=== PATIENT | male | born 1940 | race Caucasian/White ===

== ENCOUNTER 2023-04-10 08:14 | Outpatient (REF) | payer OTHER, SELFPAY ==
--- NOTE | ~2023-04-10 | XR_ITS ---
EXAMINATION: XR KNEE AP STANDING CLINICAL INFORMATION: Pain in right knee COMPARISON: None available. TECHNIQUE: AP bilateral standing view of the knees was obtained. FINDINGS: The patient is status post right total knee arthroplasty with patellar button. There is no evidence of fracture or periprosthetic lucency. There is a small marginal osteophyte along the edge of the medial tibial plateau. There is a small associated joint effusion. There is no fracture of the left knee. There is marked narrowing of the medial joint compartment and moderate narrowing of the lateral joint compartment with marginal osteophyte proliferation. XR/XR knee standing BI IMPRESSION: 1. Status post right total knee arthroplasty without evidence of hardware complication. 2. Marked osteoarthritis of the left knee.
--- NOTE | ~2023-04-10 | XR_ITS ---
EXAMINATION: XR KNEE, RIGHT CLINICAL INFORMATION: Pain in right knee COMPARISON: Same-day AP standing view of the knees TECHNIQUE: Lateral and sunrise of the right knee obtained. FINDINGS: The patient is status post right total knee arthroplasty with patellar button. There is no evidence of fracture or periprosthetic lucency. There is a small marginal osteophyte along the edge of the medial tibial plateau. There is a small associated joint effusion. There is no fracture of the left knee. There is marked narrowing of the medial joint compartment and moderate narrowing of the lateral joint compartment with marginal osteophyte proliferation. XR/XR knee RT 2V IMPRESSION: 1. Status post right total knee arthroplasty without evidence of hardware complication. 2. Marked osteoarthritis of the left knee.
== END 2023-04-10 08:15 | disposition home or self-care (01) ==
LOC: HO.HOSX 08:14
PROVIDERS: Visit Provider Physician Assistant
DX: T84.84XA Pain due to internal orthopedic prosthetic devices, implants and grafts, initial encounter (principal); Z96.651 Presence of right artificial knee joint; M25.562 Pain in left knee
CPT/HCPCS: 73560; 73565

== ENCOUNTER 2023-07-16 08:28 | Outpatient (AMB) | payer MEDICARE, SELFPAY ==
--- NOTE | 2023-07-16 08:32 | MHC.OFFVIS ---
Intake Intake Visit Reasons: RT TKA 07/2022 -book with Dr Castro Intake Note: Gregory an 82 year old male who presents today for a follow up s/p right TKA 07/2022. The patient reports mild intermittent discomfort in his right knee. He denies any fevers or chills. He does take Tylenol which gives him fairly good relief. He continues to exercise on a daily basis. Allergies aspirin Allergy (Verified 07/16/23 08:37) Hives propoxyphene [From Darvon] Allergy (Verified 07/16/23 08:37) Hives lisinopril Adverse Reaction (Verified 07/16/23 08:37) Cough Medication List - Last Reconciled 07/16/23 by Portillo Castro MD amoxicillin 2,000 mg PO clonidine 1 patch topical QWEEK losartan 50 mg PO DAILY spironolacton-hydrochlorothiaz 25-25 mg 1 tab PO DAILY tamsulosin 0.4 mg PO DAILY Physical Exam Const Other: Well-nourished well-developed very friendly male awake alert and oriented x3 in no acute distress Extrem Other: Bilateral lower extremity examination shows good capillary refill, no skin lesions noted, normal sensation light touch Right knee examination shows that the surgical incision is well healed, no erythema, no signs of infection range of motion from.... Results Reviewed Results Reviewed: X-rays of the patient's right knee taken in April show a total knee arthroplasty in good position with no signs of loosening, no acute bony abnormalities Assessment & Plan Assessment & Plan (1) Right knee pain: Code(s): M25.561 - Pain in right knee Plan: Mr. Sevilla continues to do very well after undergoing right total knee replacement surgery in July 2022. He will continue with his home exercise program. He does know to take antibiotics before any dental work. He will contact me prior to his follow-up appointment next spring should any questions or concerns arise. Feel free to call me at any time should questions regarding his orthopedic management arise. I spent 22 minutes in reviewing the patient's records and imaging studies, seeing the patient and documenting in the medical record. Coding Level of Care Code Est Pt Level 2 (17291) Diagnoses Right knee pain M25.561
== END 2023-07-16 08:55 | disposition home or self-care (01) ==
PROVIDERS: PCP Internal Medicine; Visit Provider Orthopaedic Surgery
DX: M25.561 Pain in right knee (principal)
CPT/HCPCS: 99212

== ENCOUNTER → 2023-07-16 08:28 | Outpatient (BNVA) | payer MEDICARE, SELFPAY | PROVIDERS: PCP Internal Medicine; Visit Provider Orthopaedic Surgery | DX: Z47.1 Aftercare following joint replacement surgery (principal); Z96.651 Presence of right artificial knee joint | CPT/HCPCS: 99212 ==

== ENCOUNTER 2024-01-23 07:10 | Outpatient (REF) | payer MEDICARE, SELFPAY ==
--- NOTE | ~2024-01-23 | XR_ITS ---
EXAMINATION: XR KNEE, BILATERAL CLINICAL INFORMATION: Unilateral primary osteoarthritis left knee. Pain in right knee. COMPARISON: 04/10/2023 TECHNIQUE: AP standing, lateral and sunrise views of bilateral knees. FINDINGS: Right Knee: Redemonstration of total knee arthroplasty with patellar resurfacing in anatomic position. Hardware appears intact. Moderate suprapatellar effusion. Left Knee: The bones are diffusely demineralized. Tricompartmental degenerative changes with wbmyhdgg-lg-siojjr narrowing of the medial compartment. Tricompartmental osteophytes. Moderate narrowing of the lateral joint compartment. Small suprapatellar effusion. XR/XR knee RT 3V IMPRESSION: 1. Right total knee arthroplasty in anatomic position. Hardware appears intact. 2. Moderate suprapatellar effusion. 3. Pmmiqzna-af-cjtrbp degenerative changes left knee.
--- NOTE | ~2024-01-23 | XR_ITS ---
EXAMINATION: XR KNEE, BILATERAL CLINICAL INFORMATION: Unilateral primary osteoarthritis left knee. Pain in right knee. COMPARISON: 04/10/2023 TECHNIQUE: AP standing, lateral and sunrise views of bilateral knees. FINDINGS: Right Knee: Redemonstration of total knee arthroplasty with patellar resurfacing in anatomic position. Hardware appears intact. Moderate suprapatellar effusion. Left Knee: The bones are diffusely demineralized. Tricompartmental degenerative changes with [id number] narrowing of the medial compartment. Tricompartmental osteophytes. Moderate narrowing of the lateral joint compartment. Small suprapatellar effusion. XR/XR knee LT 3V IMPRESSION: 1. Right total knee arthroplasty in anatomic position. Hardware appears intact. 2. Moderate suprapatellar effusion. 3. Fmnaajqf-ro-qawlwo degenerative changes left knee.
== END 2024-01-23 07:11 | disposition home or self-care (01) ==
LOC: HO.HOSX 07:10
PROVIDERS: Visit Provider Orthopaedic Surgery
DX: M17.12 Unilateral primary osteoarthritis, left knee (principal); M25.561 Pain in right knee; Z79.899 Other long term (current) drug therapy
CPT/HCPCS: 73562; 99212

== ENCOUNTER 2024-01-23 08:19 | Outpatient (AMB) | payer MEDICARE, SELFPAY ==
[2024-01-23 08:20] VITALS: BMI 26.6
--- NOTE | 2024-01-23 08:20 | MHC.OFFVIS ---
Intake Vital Signs 01/23/24 08:20 Height 5 ft 7 in Weight 170 lb BMI 26.6 Intake Visit Reasons: ov -RT TKA 07/2022 Intake Note: Gregory is a 83 year old male who presents for a follow up after his Right TKA in 07/2022. Patient reports mild intermittent discomfort in his right knee. Today he is most concerned with progressively worsening left knee pain. He describes his left knee pain as sharp and severe in nature, 10/10. His left knee pain has gotten worse over the last few years in spite of continued non operative treatments. He has done physical therapy exercises which aggravated his pain. He has also tried Tylenol and anti-inflammatory medicines which gave him minimal relief. He has had injections in the past. The most recent injection gave him no relief. The patient has difficulty walking even short distances because of his left knee pain. At this point is left knee pain is interfering with his activities of daily living and his ability to sleep well through the night. Allergies aspirin Allergy (Verified 01/23/24 08:30) Hives propoxyphene [From Darvon] Allergy (Verified 01/23/24 08:30) Hives lisinopril Adverse Reaction (Verified 01/23/24 08:30) Cough Medication List - Last Reconciled 01/23/24 by Portillo Castro MD amoxicillin 2,000 mg PO amoxicillin 2,000 mg (4 x 500 mg) PO ONCE clonidine 1 patch topical QWEEK losartan 50 mg PO DAILY spironolacton-hydrochlorothiaz 25-25 mg 1 tab PO DAILY tamsulosin 0.4 mg PO DAILY PFSH Surgical History (Updated 01/23/24 @ 08:31 by Hailee Cruz CMA) Hx of right knee surgery (~07/2022) Social History (Updated 01/23/24 @ 08:31 by Hailee Cruz CMA) Patient Tobacco Use Status: Never used Tobacco Current occupational status: retired Current occupation: Right hand dominate Physical Exam Vital Signs: BMI result Body Mass Index 26.6 Const Other: Well-nourished well-developed very friendly male awake alert and oriented x3 in no acute distress Extrem Other: Bilateral lower extremity examination shows good capillary refill, no skin lesions noted, normal sensation light touch Right knee examination shows that the surgical incision is well healed, no erythema, full active extension and flexion to 125 degrees, his patella tracks well Left knee examination shows a mild effusion, palpable crepitus with range of motion, pain with range of motion, range of motion from -3 degrees to 115 degrees, no instability Results Reviewed Results Reviewed: X-rays of the patient's right knee taken today show a total knee arthroplasty in good position with no signs of loosening, no acute bony abnormalities X-rays of the patient's left knee taken today show end-stage degenerative joint disease with grade 4 pngg-jr-kzau arthritis, subchondral sclerosis, osteophyte formation, no acute bony abnormalities Assessment & Plan Assessment & Plan (1) Arthritis of left knee: Code(s): M17.12 - Unilateral primary osteoarthritis, left knee (2) Right knee pain: Code(s): M25.561 - Pain in right knee Plan Mr. Sevilla continues to do very well after undergoing right total knee replacement surgery in July of 2022. He does know to take antibiotics before any dental work. The patient does have progressively worsening left knee pain due to end-stage degenerative joint disease. I had a lengthy discussion with the patient regarding the treatment options. At this point he has failed continued non operative treatments. The risks and benefits of left total knee replacement surgery were discussed at length with the patient. The patient is interested in proceeding with surgery later this year. He will contact my office to pick a surgery date. I will see him back this summer for repeat clinical examination and to further discuss his plans for left total knee replacement surgery. Feel free to call me at any time should questions regarding his orthopedic management arise. I spent 22 minutes in reviewing the patient's records and imaging studies, seeing the patient and documenting in the medical record. Orders: Orders XR knee RT 3V Today M25.561 - Pain in right knee XR knee LT 3V Today M17.12 - Unilateral primary osteoarthritis, left knee, M25.561 - Pain in right knee Coding Level of Care Code Est Pt Level 2 (20922) Diagnoses Arthritis of left knee M17.12 Right knee pain M25.561
== END 2024-01-23 09:08 | disposition home or self-care (01) ==
PROVIDERS: PCP Internal Medicine; Visit Provider Orthopaedic Surgery
DX: M17.12 Unilateral primary osteoarthritis, left knee (principal); M25.561 Pain in right knee; Z96.651 Presence of right artificial knee joint
CPT/HCPCS: 99213

== ENCOUNTER 2024-05-19 08:18 | Outpatient (AMB) | payer MEDICARE, SELFPAY ==
--- NOTE | 2024-05-19 08:22 | A.OFFVIS_ITS ---
Vital Signs 05/19/24 08:26 Height 5 ft 7 in Weight 175 lb BMI 27.4 Intake Visit Reasons: ov -RT TKA 07/2022 Intake Note: Gregory is a 83 year old male who presents for a follow up after his Right TKA in 07/2022. Patient reports mild intermittent discomfort in his right knee. Today he is most concerned with progressively worsening left knee pain. He describes his left knee pain as sharp and severe in nature, 10/10. His left knee pain has gotten worse over the last few years in spite of continued non operative treatments. He has done physical therapy exercises which aggravated his pain. He has also tried Tylenol and anti-inflammatory medicines which gave him minimal relief. He has had injections in the past. The most recent injection gave him no relief. The patient has difficulty walking even short distances because of his left knee pain. At this point is left knee pain is interfering with his activities of daily living and his ability to sleep well t hrough the night. Allergies aspirin Allergy (Verified 05/19/24 08:27) Hives propoxyphene [From Darvon] Allergy (Verified 05/19/24 08:27) Hives lisinopril Adverse Reaction (Verified 05/19/24 08:27) Cough Medication List - Last Reconciled 05/19/24 by Portillo Castro MD amoxicillin 2,000 mg PO amoxicillin 2,000 mg (4 x 500 mg) PO ONCE clonidine 1 patch topical QWEEK losartan 50 mg PO DAILY spironolacton-hydrochlorothiaz 25-25 mg 1 tab PO DAILY tamsulosin 0.4 mg PO DAILY PFSH Surgical History Hx of right knee surgery (~07/2022) Social History Patient Tobacco Use Status: Never used Tobacco Current occupational status: retired Current occupation: Right hand dominate Physical Exam Vital Signs: BMI result Body Mass Index 27.4 Const Other: Well-nourished well-developed very friendly male awake alert and oriented x3 in no acute distress Extrem Other: Bilateral lower extremity examination shows good capillary refill, no skin lesions noted, normal sensation light touch Left knee examination shows a mild effusion, palpable crepitus with range of motion, pain with range of motion, range of motion from -3 degrees to 115 degrees, no instability Results Reviewed Results Reviewed: X-rays of the patient's left knee show end-stage degenerative joint disease with grade 4 jsmd-rh-tcsr arthritis, subchondral sclerosis, osteophyte formation, no acute bony abnormalities Assessment & Plan Assessment & Plan (1) Arthritis of left knee: Code(s): M17.12 - Unilateral primary osteoarthritis, left knee Category: Medical Plan Mr. Sevilla presents with progressively worsening left knee pain due to end- stage degenerative joint disease. I had a lengthy discussion with the patient regarding the treatment options. At this point he has failed continued non operative treatments. The risks and benefits of left total knee replacement surgery were discussed at length with the patient. The patient wishes to proceed with surgery. He will be scheduled for next available date. I will see him back prior to the surgery to answer any final questions that he might have. Feel free to call me at any time should questions regarding his orthopedic management arise. I spent 22 minutes in reviewing the patient's records and imaging studies, seeing the patient and documenting in the medical record. Medications: Refilled amoxicillin Take four tabs (2,000 mg) one hour before any dental work 2,000 mg (4 x 500 mg) PO ONCE 20 tabs 3RF Coding Level of Care Code Est Pt Level 3 (44684) Diagnoses Arthritis of left knee M17.12
[2024-05-19 08:26] VITALS: BMI 27.4
== END 2024-05-19 08:52 | disposition home or self-care (01) ==
PROVIDERS: PCP Internal Medicine; Visit Provider Orthopaedic Surgery
DX: M17.12 Unilateral primary osteoarthritis, left knee (principal)
CPT/HCPCS: 99214

== ENCOUNTER → 2024-05-19 08:18 | Outpatient (BNVA) | payer MEDICARE, SELFPAY | PROVIDERS: PCP Internal Medicine; Visit Provider Orthopaedic Surgery | DX: M17.12 Unilateral primary osteoarthritis, left knee (principal) | CPT/HCPCS: 99212 ==

== ENCOUNTER → 2024-06-18 10:51 | Outpatient (BNVA) | payer MEDICARE, SELFPAY | PROVIDERS: PCP Internal Medicine | DX: Z01.818 Encounter for other preprocedural examination (principal) ==

== ENCOUNTER 2024-07-16 08:02 | Outpatient (AMB) | payer MEDICARE, SELFPAY ==
--- NOTE | 2024-07-16 08:06 | MHC.OFFVIS ---
Intake Visit Reasons: L TKA w/ 07/20/24 Intake Note: Gregory is a 83 year old male who presents for a follow up after his Right TKA in 07/2022. Patient reports mild intermittent discomfort in his right knee. Today he is most concerned with progressively worsening left knee pain. He describes his left knee pain as sharp and severe in nature, 10/10. His left knee pain has gotten worse over the last few years in spite of continued non operative treatments. He has done physical therapy exercises which aggravated his pain. He has also tried Tylenol and anti-inflammatory medicines which gave him minimal relief. He has had injections in the past. The most recent injection gave him no relief. The patient has difficulty walking even short distances because of his left knee pain. At this point is left knee pain is interfering with his activities of daily living and his ability to sleep well through the night. Allergies aspirin Allergy (Verified 07/16/24 08:11) Hives propoxyphene [From Darvon] Allergy (Verified 07/16/24 08:11) Hives lisinopril Adverse Reaction (Verified 07/16/24 08:11) Cough Medication List - Last Reconciled 07/16/24 by Portillo Castro MD amoxicillin 2,000 mg (4 x 500 mg) PO ONCE cholecalciferol (vitamin D3) 50 mcg PO DAILY clonidine 1 patch topical QWEEK ipratropium bromide 2 sprays intranasal TID losartan 50 mg PO DAILY spironolacton-hydrochlorothiaz 25-25 mg 1 tab PO DAILY tamsulosin 0.4 mg PO BEDTIME walker Folding front wheeled walker [facility] Medical History Bowel obstruction Osteoarthritis Pain in limb Pure hypercholesterolemia Hearing loss Unspecified deformity of ankle and foot, acquired Hyperpiesia Arthritis Helicobacter pylori (H. pylori) infection HTN (hypertension) Prostate nodule Actinic keratosis Pre-diabetes Surgical History H/O colonoscopy Hx of appendectomy History of esophagogastroduodenoscopy (EGD) History of total right knee replacement Hx of right knee surgery (~2000) Social History Are you a primary intensive care nurse to a significant other at home: No Do you presently have visiting nurse or other home services: No Patient Tobacco Use Status: Never used Tobacco Current occupational status: retired Current occupation: Right hand dominate Physical Exam Const Other: Well-nourished well-developed very friendly male awake alert and oriented x3 in no acute distress Extrem Other: Bilateral lower extremity examination shows good capillary refill, no skin lesions noted, normal sensation light touch Left knee examination shows a minimal effusion, palpable crepitus with range of motion, pain with range of motion, range of motion from -3 degrees to 115 degrees, no instability Results Reviewed Results Reviewed: X-rays of the patient's left knee show end-stage degenerative joint disease with grade 4 xyob-wi-dlri arthritis, subchondral sclerosis, osteophyte formation, no acute bony abnormalities Assessment & Plan Assessment & Plan (1) Arthritis of left knee: Code(s): M17.12 - Unilateral primary osteoarthritis, left knee Category: Medical Plan Mr. Sevilla presents with left knee pain due to end-stage degenerative joint disease. I had a lengthy discussion with the patient regarding the treatment options. At this point he has failed continued non operative treatments. The risks and benefits of left total knee replacement surgery were discussed at length with the patient. The patient wishes to proceed with surgery. administrative services coordinator will be consulted following his surgery for home physical therapy and nursing. The patient will follow-up as instructed. Feel free to call me at any time should questions regarding his orthopedic management arise. I spent 22 minutes in reviewing the patient's records and imaging studies, seeing the patient and documenting in the medical record. Coding Level of Care Code Est Pt Level 3 (65256) Complex EM visit Add On G2211 Diagnoses Arthritis of left knee M17.12
== END 2024-07-16 08:25 | disposition home or self-care (01) ==
PROVIDERS: PCP Internal Medicine; Visit Provider Orthopaedic Surgery
DX: M17.12 Unilateral primary osteoarthritis, left knee (principal); Z96.651 Presence of right artificial knee joint
CPT/HCPCS: 99214; G2211

== ENCOUNTER → 2024-07-16 08:02 | Outpatient (BNVA) | payer MEDICARE, SELFPAY | PROVIDERS: PCP Internal Medicine; Visit Provider Orthopaedic Surgery | DX: M17.12 Unilateral primary osteoarthritis, left knee (principal); Z96.652 Presence of left artificial knee joint; Z96.651 Presence of right artificial knee joint | CPT/HCPCS: 99212 ==

== ENCOUNTER 2024-07-20 05:50 | Day surgery (SDC) | payer MEDICARE, SELFPAY ==
[2024-07-13 12:31] VITALS: BP 145/70; PULSE 59; RESP 18; O2SAT 97; BMI 27.9
--- NOTE | 2024-07-13 12:45 | P.CONAN_ITS ---
Documented by User: Julieta Sullivan NP 07/17/24 11:57 HPI - Anesthesia Eval Consult details Narrative: 83yo M for ?Knee Replacement Total, 07/20/24 No recent illness No CP/SOB with yardwork, stationary bike HTN / CKD : clonidine patch effective, follows RTANE. Stable without tx change at 04/2024. Aware of surgery. Baseline creat 1.3. PMFSH Active Problems Active Problems: All Active Problems Arthritis of left knee (Acute) Right knee pain (Acute) Status post total right knee replacement (Acute) Past Medical History Medical History Former smoker CKD (chronic kidney disease) Bowel obstruction Osteoarthritis Pain in limb Pure hypercholesterolemia Hearing loss Unspecified deformity of ankle and foot, acquired Hyperpiesia Arthritis Helicobacter pylori (H. pylori) infection HTN (hypertension) Prostate nodule Actinic keratosis Pre-diabetes Family History Family history of problems with anesthesia: No Surgical History Surgical History H/O colonoscopy Hx of appendectomy History of esophagogastroduodenoscopy (EGD) History of total right knee replacement Hx of right knee surgery (~2000) History of Problems with Anesthesia: No Social History Social History Are you a primary health care / medical job titles to a significant other at home: No Do you presently have visiting nurse or other home services: No Patient Tobacco Use Status: Never used Tobacco Use of substances other than those prescribed or required for medical reasons: No Have you been hit, kicked, punched, or otherwise hurt by someone within the past year? If so, by whom?: No Are you DNR?: No Advance Directives: No Advance Directives Information Provided: Yes Advance Directives on File: No Recently lost weight without trying: No Eating poorly because of decreased appetite: No Nutrition Risks: No Nutritional Risk Poor oral hygiene: Yes (full upper denture and partial lower denture) Current occupational status: retired Current occupation: Right hand dominate Meds Allergies Allergy/AdvReac Type Severity Reaction Status Date / Time aspirin Allergy Severe Hives Verified 07/20/24 06:20 codeine Allergy Intermediate Hives Verified 07/20/24 06:34 propoxyphene [From Darvon] Allergy Intermediate Hives Verified 07/20/24 06:20 lisinopril AdvReac Intermediate Cough Verified 07/20/24 06:20 Home Medications ?Medication ?Instructions ?Recorded ?Confirmed ?Last Taken ?Type clonidine 0.1 mg/24 hr weekly 1 patch topical QWEEK 04/10/23 07/20/24 07/18/24 History transdermal patch losartan 50 mg tablet 50 mg PO DAILY 04/10/23 07/20/24 07/19/24 History spironolactone 25 1 tab PO DAILY 04/10/23 07/20/24 07/19/24 History mg-hydrochlorothiazide 25 mg tablet tamsulosin 0.4 mg capsule 0.4 mg PO BEDTIME 04/10/23 07/20/24 07/19/24 History cholecalciferol (vitamin D3) 25 50 mcg PO DAILY 07/10/24 07/20/24 07/19/24 History mcg (1,000 unit) tablet ipratropium bromide 21 mcg (0.03 2 spray intranasal TID 07/10/24 07/20/24 07/19/24 History %) nasal spray Exam Height,Weight and Vital Signs: Height 5 ft 7 in Weight 80.739 kg Last Vital Signs Pulse 59 07/13/24 12:31 Resp 18 07/13/24 12:31 BP 145/70 H 07/13/24 12:31 Pulse Ox 97 07/13/24 12:31 O2 Del Method Room Air 07/13/24 12:31 Pertinent Lab Results Pertinent Lab Results: CBC and BMP from outside facility WNL (in clearance note) Creat 1.3 Narrative Narrative: EKG 06/2024 SR @ 60 Short RI Artifact Airway Mallampati Class: III TM Dist: >3cm Neck ROM: Full Denture: Upper Partial: Lower Heart: RRR Lungs: CTAB Assessment and Plan Assessment Anesthesia Assessment: Anesthesia Plan Discussed and PAT Visit Final Anesthetic Review Family History of Problems with Anesthesia: No History of Problems with Anesthesia: No Documented by User: Trista Prieto MD 07/20/24 08:09 [facility] Past Medical History Medical History Former smoker CKD (chronic kidney disease) Bowel obstruction Osteoarthritis Pain in limb Pure hypercholesterolemia Hearing loss Unspecified deformity of ankle and foot, acquired Hyperpiesia Arthritis Helicobacter pylori (H. pylori) infection HTN (hypertension) Prostate nodule Actinic keratosis Pre-diabetes Surgical History Surgical History H/O colonoscopy Hx of appendectomy History of esophagogastroduodenoscopy (EGD) History of total right knee replacement Hx of right knee surgery (~2000) Social History Social History Are you a primary health care / medical job titles to a significant other at home: No Do you presently have visiting nurse or other home services: No Patient Tobacco Use Status: Never used Tobacco Use of substances other than those prescribed or required for medical reasons: No Have you been hit, kicked, punched, or otherwise hurt by someone within the past year? If so, by whom?: No Are you DNR?: No Advance Directives: No Advance Directives Information Provided: Yes Advance Directives on File: No Recently lost weight without trying: No Eating poorly because of decreased appetite: No Nutrition Risks: No Nutritional Risk Poor oral hygiene: Yes (full upper denture and partial lower denture) Current occupational status: retired Current occupation: Right hand dominate Meds Allergies Allergy/AdvReac Type Severity Reaction Status Date / Time aspirin Allergy Severe Hives Verified 07/20/24 06:20 codeine Allergy Intermediate Hives Verified 07/20/24 06:34 propoxyphene [From Darvon] Allergy Intermediate Hives Verified 07/20/24 06:20 lisinopril AdvReac Intermediate Cough Verified 07/20/24 06:20 Home Medications ?Medication ?Instructions ?Recorded ?Confirmed ?Last Taken ?Type clonidine 0.1 mg/24 hr weekly 1 patch topical QWEEK 04/10/23 07/20/24 07/18/24 History transdermal patch losartan 50 mg tablet 50 mg PO DAILY 04/10/23 07/20/24 07/19/24 History spironolactone 25 1 tab PO DAILY 04/10/23 07/20/24 07/19/24 History mg-hydrochlorothiazide 25 mg tablet tamsulosin 0.4 mg capsule 0.4 mg PO BEDTIME 04/10/23 07/20/24 07/19/24 History cholecalciferol (vitamin D3) 25 50 mcg PO DAILY 07/10/24 07/20/24 07/19/24 History mcg (1,000 unit) tablet ipratropium bromide 21 mcg (0.03 2 spray intranasal TID 07/10/24 07/20/24 07/19/24 History %) nasal spray Assessment and Plan Final Anesthetic Review NPO: Yes ASA Class: III Final Preanesthetic Review: No Changes in Pt Med Stat, Meds/Allgs Chart Reviewed, Consent Obtained/Reviewed and Anes Risks/Benef Reviewed Patient Risk: Intermediate Procedure Risk: Intermediate Anesthetic Plan Anesthetic Plan: Spinal and Regional Block Disposition: Standard PACU
[2024-07-13 15:11] LABS: MRSA Nasal PCR NEGATIVE (Negative); SA Nasal PCR NEGATIVE (Negative)
[2024-07-20] VITALS (12 sets, daily range): BP systolic 114–165; BP diastolic 52–72; PULSE 47–83; RESP 12–18; TEMP 36–36.9; O2SAT 93–99; BMI 27.8
--- NOTE | 2024-07-20 06:46 | PC.NURSE ---
Patient arrived to preop. Clonidine patch present on right shoulder. OR nurse and anesthesia team made aware.
[2024-07-20] MEDS: Lactated Ringers 1,000 ML 100 ML IVCONT ×3 (06:52→22:06)
--- NOTE | 2024-07-20 10:22 | P.BOP_ITS ---
Brief Operative Note Date of Service: 07/20/24 Pre-op diagnosis: Left knee degenerative joint disease Post-op diagnosis: same Procedure: Left total knee arthroplasty Implants: Ashish Triathlon cemented posterior stabilized total knee arthroplasty with a femoral component size 5 left, tibial component size 6, polyethylene liner size 6 with 9 mm of thickness, an asymmetric patellar component size 35 with 10 mm of thickness Surgeon: Portillo Castro MD Anesthesia: regional and spinal Was an Cap Lining Machine Operator used for this Procedure?: No Cap Lining Machine Operator: Radha Lino Estimated blood loss (mL): 200 Pathology: other (Bony fragments from the left femur, tibia and patella) Condition: stable Disposition: PACU
--- NOTE | 2024-07-20 10:23 | W.PM.OPN ---
Operative Note Operative Note Date of Service: 07/20/24 Narrative: After the patient was identified as Gregory Sevilla and his left knee was initialed by myself the patient was brought to the holding area where a left leg nerve block was performed by the anesthesiologist in routine fashion. The patient was then brought to the operating room where conscious sedation and spinal anesthesia were performed by the anesthesiologist in routine fashion. The patient was given 2 g of IV Ancef preoperatively for infection prophylaxis. The patient's left lower extremity was prepped and draped in sterile fashion. A formal time-out was completed. The patient's left knee was placed onto a small bump to produce 30? of knee flexion during exposure. A #10 scalpel blade was used to make a midline incision extending 1 handbreadth proximal and distal to the patella. A second #10 scalpel blade was used to dissect the subcutaneous tissues down to the extensor mechanism. The subcutaneous flaps were maintained as thick as possible. A medial parapatellar arthrotomy was then performed using a #10 scalpel blade. The arthrotomy was begun just medial to the patellar tendon. The arthrotomy was continued 1 cm medial to the patella and then 5 mm into the medial aspect of the quadriceps tendon. The infrapatellar fat pad was partially excised to help with exposure. The soft tissue retinaculum was raised one-half of the way around the medial aspect of the proximal tibia. The patella was everted and the knee was flexed to 90?. There was no injury to the patellar tendon or its insertion onto the tibial tubercle. A drill bit was introduced into the distal aspect of the femur with a starting point 1 cm anterior to the origin of the posterior cruciate ligament. The intramedullary alignment javier was put into place. The distal alignment guide was set for a 5 degree valgus cut. The distal cutting block was put into place and was held with 4 pins. The intramedullary alignment javier was removed. Soft tissues were retracted in the distal femoral cut was made using a sagittal saw. The distal aspect of the femur measured to be a size 5 left component. Two drill holes were placed into the distal aspect of the femur marking 3? of external rotation. The distal cutting block was impacted into place and was held with 2 pins. Soft tissues were retracted and the 4 distal femoral cuts were made using a sagittal saw. Final notching and drilling of the distal aspect of the femur were performed in routine fashion. The trial femoral component was impacted into place. The knee was taken through a full range of motion. The patella tracked well. The patella was everted and the knee was flexed to 90?. The trial component was removed and our attention was directed to the proximal tibia. The medial and lateral menisci were removed using a #10 scalpel blade. A small rim of the medial meniscus was left intact to help prevent injury to the medial collateral ligament. A drill bit was then introduced into the proximal tibia with a starting point midway from medial to lateral and one-third of the way posteriorly. The intramedullary alignment javier was put into place. The proximal tibial cutting guide was placed over the alignment javier in line with the 2nd toe. The guide was held in place using 3 pins. The intramedullary alignment javier was removed. Soft tissues were retracted and the proximal tibial cut was made using a sagittal saw. The proximal tibia measured to be a size 6 component. The tibial tray was put into place with a 9 mm liner. The femoral component was impacted into place. The knee was taken through a full range of motion. There was full flexion and full extension. There was no instability with varus or valgus stress testing with the knee in flexion or extension. The patella tracked well with no medially directed force. The rotation of the tibial tray was marked using electrocautery with the knee in extension. The patella was everted and the knee was flexed to 90?. All trial components were removed. The tibial tray was placed onto the proximal tibia in line with the electrocautery merrill. The tray was held in place using 3 pins. Final broaching of the proximal tibia was performed in routine fashion. The trial liner and trial femoral component were put into place. The knee was brought into extension and our attention was directed to the patella. The patella measured 25 mm in thickness. The patellar resection guide was set for a 10 mm resection. Soft tissues were retracted and the patella cut was made using a sagittal saw. The remaining patella measured 15 mm in thickness. The undersurface of the patella was measured to be a size 35 asymmetric component. Three drill holes were placed into the undersurface of the patella in routine fashion. The trial component was put into place. The knee was taken through a full range of motion. The patella tracked well. The patella was everted and the knee was flexed to 90?. All trial components were removed. The knee was once again brought into extension and placed onto a small bump. The knee joint was irrigated with copious amounts of normal saline solution via pulse lavage while the cement was mixed. The patella was everted and the knee was flexed to 90?. A small amount of cement was placed along the posterior aspects of the tibial and femoral components. Cement was then pressurized into the proximal tibia. The tibial component was impacted into place. Any excess cement was removed. The polyethylene liner was then impacted into place. Cement was then pressurized into the distal aspect of the femur. A small amount of cement was placed into the intramedullary canal to help reduce bleeding. The femoral component was impacted into place. Any excess cement was removed. The knee was then brought into extension. Cement was pressurized into the undersurface of the patella. The patellar component was put into place and was held with a patella clamp. Any excess cement was removed. Once the cement had hardened the patellar clamp was removed. The knee was taken through a full range of motion. There was full flexion and extension. There was no instability with varus or valgus stress testing with the knee in flexion or extension. The patella tracked well with no medially directed force. The knee joint was irrigated with copious amounts of normal saline solution via pulse lavage. Any significant bleeding vessels were coagulated. The patient's left knee was placed onto a small bump. The arthrotomy was closed with #2 Ethibond [id number] interrupted suture as well as #1 Vicryl [id number] interrupted suture. The wound was once again irrigated. The subcutaneous tissues were closed with 0 Vicryl and 2-0 Vicryl interrupted sutures. The skin was closed with skin martha. Dry sterile dressing and Contreras bandages were placed over the patient's left knee. The patient was awake and alert. The patient was transferred to the recovery room in stable condition.
--- NOTE | 2024-07-20 10:33 | PHA.MEDREC ---
Pharmacy Consult ? Medication Reconciliation Pharmacy has reviewed the medication reconciliation completed by nursing.
[2024-07-20 12:49] LABS: Estimated Glomerular Filt Rate 49
[2024-07-20] MEDS: oxyCODONE HCl Immed Release 5 MG TABLET 10 MG PO ×2 (14:17→20:17)
[2024-07-20] MEDS: Acetaminophen 325 MG TABLET 650 MG PO (14:17)
[2024-07-20] MEDS: ceFAZolin Sodium/Dextrose,Iso 2 GM/50 ML PIGGYBACK IV ×2 (15:45→23:52)
[2024-07-20] MEDS: 0.9 % Sodium Chloride Flush 3 ML SYRINGE IVFLUSH ×2 (15:49→23:53)
[2024-07-20] MEDS: HYDROmorphone HCl 0.5 MG/0.5 ML SYRINGE 0.25 MG IVPUSH (17:58)
[2024-07-20] MEDS: Enoxaparin Sodium 40 MG/0.4 ML SYRINGE SUBCUT (17:58)
[2024-07-20] MEDS: Tamsulosin HCL 0.4 MG CAPSULE PO (20:17)
[2024-07-20] MEDS: Docusate Sodium 100 MG CAPSULE PO (20:17)
[2024-07-20] MEDS: Ipratropium Bromide Nas 0.03 % 30 ML SPRAY 2 SPRAY NOSTRIL-B (20:18)
[2024-07-21] MEDS: oxyCODONE HCl Immed Release 5 MG TABLET 10 MG PO ×3 (00:21→12:18)
[2024-07-21 03:29] VITALS: BP 157/73; PULSE 88; RESP 14; TEMP 37.2; O2SAT 94
[2024-07-21 07:22] VITALS: BP 153/67; PULSE 84; RESP 18; TEMP 37.1; O2SAT 95
[2024-07-21] MEDS: Losartan Potassium 50 MG TABLET PO (07:37)
[2024-07-21] MEDS: hydroCHLOROthiazide 25 MG TABLET PO (07:37)
[2024-07-21] MEDS: Cholecalciferol (Vitamin D3) 25 MCG TABLET 50 MCG PO (07:37)
[2024-07-21] MEDS: Docusate Sodium 100 MG CAPSULE PO (07:38)
[2024-07-21] MEDS: 0.9 % Sodium Chloride Flush 3 ML SYRINGE IVFLUSH (07:39)
[2024-07-21] MEDS: ceFAZolin Sodium/Dextrose,Iso 2 GM/50 ML PIGGYBACK IV (07:39)
[2024-07-21] MEDS: Spironolactone 25 MG TABLET PO (08:09)
[2024-07-21] MEDS: Ipratropium Bromide Nas 0.03 % 30 ML SPRAY 2 SPRAY NOSTRIL-B (08:09)
[2024-07-21 08:17] LABS: MANUAL DIFF FLAG NO
[2024-07-21 08:20] LABS: Basophils Percent Auto 0.2 % (0-2); Eosinophils Percent Auto 0.1 % (0-4); Hematocrit 32.7 % (42.0-52.0); Imm Gran Abs Auto 0.07 X10*3/uL (0.00-0.03); Imm Gran Pct Auto 0.6 % (0.0-0.4); Lymphocytes Absolute Auto 0.6 X10*3/uL (1.2-4.9); Lymphocytes Percent Auto 4.7 % (20-40); Mean Corpuscular HGB Conc 33.6 g/dl (31.0-36.0); Mean Corpuscular Hemoglobin 30.7 pg (27.0-33.0); Mean Corpuscular Volume 91.3 fL (80.0-98.0); Mean Platelet Volume 10.4 fL (9.4-12.4); Monocytes Absolute Auto 1.1 X10*3/uL (0.1-1.2); Monocytes Percent Auto 9.4 % (2-11); Neutrophils Absolute Auto 10.2 x10*3/uL (2.0-8.3); Platelet Count 165 X10*3/uL (160-400); Red Blood Count 3.58 X10*6/uL (4.60-5.80); Red Cell Distribution Width 12.4 % (11.0-16.0)
[2024-07-21 08:36] LABS: Anion Gap 11 (12-20); Blood Urea Nitrogen 27 mg/dL (9-16); Calcium 9.1 mg/dL (8.4-10.2); Carbon Dioxide 26 mmol/L (22-29); Chloride 103 mmol/L (96-108); Estimated Glomerular Filt Rate 55; Glucose Fasting 136 mg/dL (60-99); Sodium 136 mmol/L (135-145)
--- NOTE | 2024-07-21 11:33 | HO.POSTANES ---
Post Anesthesia Evaluation Post Anesthesia Evaluation Date of Service: 07/21/24 Vital Signs: Vital Signs Temp Pulse Resp BP Pulse Ox O2 Del Method 07/21/24 07:22 98.8 F 84 18 153/67 H 95 Room Air 07/21/24 03:29 99 F 88 14 157/73 H 94 Room Air Anesthesia: Spinal and Nerve Block Mental Status: Awake Pain Control: Satisfactory Nausea/Vomiting: None Hydration: Adequate Anesthesia-Related Issues: No Anes. Related Issues
--- NOTE | 2024-07-21 12:05 | W.MHC.F2F ---
Service Date Service Date: 07/21/24 Encounter Date of encounter: 07/21/24 Reasons for Services Signs and symptoms assessed: Weakness, poor balance, poor gait mechanics Reason for physical therapy: home safety and mobility, therapeutic exercises, restore joint function, gait/transfer training, ADL training and energy conservation Reason for occupational therapy: home safety and mobility, therapeutic exercises, restore joint function, gait/transfer training, ADL training and energy conservation Homebound: Leaving the home is medically contraindicated at this time without the asist of a device and/or another person due th the listed conditions above and below. Reason homebound: unsteady gait / fall risk, pain with ambulation, poor balance / fall risk and unable to drive Homebound supporting statement: Pt. is considered home bound due to recent surgery. Unable to drive, poor balance, poor gait mechanics. Certification: Based on the above findings, I certify that this patient is confined to the home and needs intermittent senior care care, physical therapy and/or speech therapy, or continues to need occupational therapy. The patient is under my care, and I have initiated the establishment of the plan of care. The patient will be followed by a physician who will periodically review the plan of care. Time Spent With Patient Time: Total time managing care of this patient today ____ minutes.
--- NOTE | 2024-07-21 12:06 | P.DS_ITS ---
DS: Providers Provider Date of Service: 07/21/24 Primary care physician: Amarjit Romero MD DS: Summary Hospital Course Hospital Course: The patient underwent a successful Left total knee arthroplasty on 07/20/[address] Castro, was transferred to PACU and then to the floor to recover. During their stay, their vitals were stable, afebrile at . Labs were unremarkable, H/H 11.0/32.7. POD 1 he was started on Lovenox for DVT ppx, they also received Physical Therapy services twice a day. Physical therapy should include gait training, ROM to tolerance and quad str ength. He is WBAT. Prior to discharge, his dressing was clean dry and intact. The Aquacel dressing should remain intact and dry at all times. Any concerns with the dressi ng, please contact orthopedic office. No showering. The plan is to be discharged home with vna Time Attestation Discharge Coordination Time (in mins): 30 Quality: Safe Use of Opioids Does Pt have an Active Cancer Diagnosis on the Problem List?: No Quality: Stroke Does the patient have a stroke diagnosis?: No Physical Exam Vital Signs: Vital Signs: Last Vital Signs Temp 98.8 F 07/21/24 07:22 Pulse 84 07/21/24 07:22 Resp 18 07/21/24 07:22 BP 153/67 H 07/21/24 07:22 Pulse Ox 95 07/21/24 07:22 O2 Del Method Room Air 07/21/24 07:22 O2 Flow Rate 4 07/20/24 10:26 BMI result Body Mass Index 27.8 DS: Data Data Completed and Pending Pending studies at discharge: Pending at discharge 07/20/24 09:14 Surgical [PTH] Routine Labs on day of discharge: Laboratory Results - last 24 hr 07/20/24 07/21/24 12:14 07:37 WBC 12.0 H RBC 3.58 L Hgb 11.0 L Hct 32.7 L MCV 91.3 MCH 30.7 MCHC 33.6 RDW 12.4 Plt Count 165 MPV 10.4 Immature Gran % (Auto) 0.6 H Neut % (Auto) 85.0 H Lymph % (Auto) 4.7 L [place] % (Auto) 9.4 Eos % (Auto) 0.1 Baso % (Auto) 0.2 Lymph # (Auto) 0.6 L [place] # (Auto) 1.1 Eos # (Auto) 0.0 Baso # (Auto) 0.0 Abs Immat Gran (auto) 0.07 H Absolute Neuts (auto) 10.2 H Absolute Nucleated RBC 0.000 Nucleated RBC % (auto) 0.0 Sodium 136 Potassium 4.0 Chloride 103 Carbon Dioxide 26 Anion Gap 11 L BUN 27 H Creatinine 1.40 1.25 Estim Creat Clear Calc 42.0 47.0 Estimated GFR 49 55 Fasting Glucose 136 H Calcium 9.1 Discharge Plan Discharge Patient Disposition: Home, Self-Care Referrals: Radha Lino PA-C [Physician Rehabilitation Therapy Aide] - 08/06/24 12:30 pm Discharge Medications: New docusate sodium 100 mg Capsule 100 mg PO BID 7 Days Qty: 14 0RF acetaminophen 325 mg Tablet 650 mg PO Q6H PRN (Reason: Pain, Mild (Pain Scale 1-3), fever or headache) 30 Days Qty: 240 0RF oxycodone 5 mg Tablet 5 mg PO Q4H PRN (Reason: Pain, Moderate(Pain Scale 4-6)) 7 Days Qty: 42 0RF Rx Instructions: Partial Fill upon patient request. enoxaparin 40 mg/0.4 mL Syringe 40 mg subcut Q24H 28 Days Qty: 11.2 0RF Continued (SARY) harpreet [facility] [place] See Rx Instructions .ROUTE .MEDSUPPLY Qty: 1 0RF Rx Instructions: Folding front wheeled walker ipratropium bromide 21 mcg (0.03 %) spray,non-aerosol 2 spray intranasal TID cholecalciferol (vitamin D3) 25 mcg (1,000 unit) Tablet 50 mcg PO DAILY amoxicillin 500 mg tablet 2,000 mg PO ONCE PRN (Reason: dental work) Rx Instructions: Take four tabs (2,000 mg) one hour before any dental work spironolacton-hydrochlorothiaz 25-25 mg tablet 1 tab PO DAILY losartan 50 mg tablet 50 mg PO DAILY tamsulosin 0.4 mg capsule 0.4 mg PO BEDTIME clonidine 0.1 mg/24 hr patch weekly 1 patch topical SA Patient Comments: changed every Saturday evening Discharge Orders: Discharge Order (Routine); Ordered 07/21/24 Ordered By: Marcio Murphy Diet: Advance to usual diet Activity on Discharge: Use cane or walker Activity Restrictions/Additional Instructions: Physical Therapy for ROM 0-120, quad strength, gait training. Use walker for ambulation Limit stair climbing, No shower, No tub bath, No driving Continue anticoagulant x 6 weeks Keep Aquacel dressing clean, dry and intact. Follow up with orthopedics in 2 weeks Print Language: Burundian
--- NOTE | 2024-07-21 13:05 | MHC.CM.PN ---
IMM 07/21/24, pt has been medically cleared for DC, he will go home via family transport and have home care from [facility].
--- NOTE | 2024-07-21 13:16 | PC.NURSE ---
Pt verbalizes understanding of all DC instructions, including SQ Lovenox injection, dressing instructions, and when to follow up with Ortho. IV removed, tip intact, pt tolerated well.
== END 2024-07-21 13:11 | disposition home or self-care (01) ==
LOC: HO.SSS 05:50 → HO.S3 10:22
PROVIDERS: Physician Assistant; PCP Internal Medicine; Visit Provider Orthopaedic Surgery
PROC: (CPT 27447; principal; 2024-07-20 07:30)
DX: M17.12 Unilateral primary osteoarthritis, left knee (principal); M25.562 Pain in left knee; R26.2 Difficulty in walking, not elsewhere classified; I10 Essential (primary) hypertension; R73.03 Prediabetes; E78.00 Pure hypercholesterolemia, unspecified; L57.0 Actinic keratosis; Z79.899 Other long term (current) drug therapy; Z88.6 Allergy status to analgesic agent; Z88.8 Allergy status to other drugs, medicaments and biological substances; Z86.19 Personal history of other infectious and parasitic diseases; Z96.651 Presence of right artificial knee joint; Z87.891 Personal history of nicotine dependence
CPT/HCPCS: 27447; 36415; 80048; 82565; 85025; 86850; 86900; 86901; 87640; 87641; 88305; 88311; 97110; 97116; 97161; C1776; J0131; J0171; J0665; J0690; J1100; J1170; J1650; J2250; J2704; J3370; J7120

== ENCOUNTER → 2024-07-20 05:50 | Outpatient (BNV) | payer MEDICARE, SELFPAY | PROVIDERS: PCP Internal Medicine; Visit Provider Orthopaedic Surgery | DX: Z47.1 Aftercare following joint replacement surgery (principal); Z96.652 Presence of left artificial knee joint | CPT/HCPCS: 27447; 99024; G0180 ==

== ENCOUNTER 2024-08-06 11:13 | Outpatient (REF) | payer MEDICARE, SELFPAY ==
--- NOTE | ~2024-08-06 | XR_ITS ---
EXAMINATION: XR KNEE RIGHT 1 VIEW CLINICAL INFORMATION: Pain in unspecified knee M25.569. COMPARISON: XR Right knee 01/23/2024 TECHNIQUE: One view of the right knee. FINDINGS: Prosthetic components of bilateral total knee arthroplasty are appropriately aligned without periprosthetic fracture or abnormal lucency. No component migration on this single radiograph. Multiple surgical martha overlie the left knee. XR/XR knee RT 1V IMPRESSION: Expected postoperative findings following left total knee arthroplasty. Electronically signed by: Pacheco Deras MD 10/14/2024 11:59 AM EST [facility]
== END 2024-08-06 11:14 | disposition home or self-care (01) ==
LOC: HO.HOSX 11:13
PROVIDERS: Visit Provider Physician Assistant
DX: M25.569 Pain in unspecified knee (principal); Z96.652 Presence of left artificial knee joint; Z96.651 Presence of right artificial knee joint
CPT/HCPCS: 73560; 73562; 99212

== ENCOUNTER 2024-08-06 12:08 | Outpatient (AMB) | payer MEDICARE, SELFPAY ==
--- NOTE | 2024-08-06 12:28 | MHC.OFFVIS ---
Intake Visit Reasons: L TKA w/ 07/20/24 Intake Note: Gregory is a 83 year old male who presents today for a post op appointment s/p Left TKA 07/20/24 NE. Patient reports he is doing well, states his current pain level is 3-5 out of 10. He states no concerns today. Allergies aspirin Allergy (Severe, Verified 08/06/24 12:31) Hives codeine Allergy (Intermediate, Verified 08/06/24 12:31) Hives propoxyphene [From Darvon] Allergy (Intermediate, Verified 08/06/24 12:31) Hives lisinopril Adverse Reaction (Intermediate, Verified 08/06/24 12:31) Cough HPI HPI L TKA w/ 07/20/24: Details: 83-year-old male who presents in the office today for a 17 days status post left total knee arthroplasty which was performed on 07/20/[address] Castro. While in the office today, the patient reports he is doing well; however, he continues to have some pain. He rates his current pain at 3-5/10 on the pain scale. He denies any concerns today. FORMERLY [facility], 1928–1983 Medical History Former smoker CKD (chronic kidney disease) Bowel obstruction Osteoarthritis Pain in limb Pure hypercholesterolemia Hearing loss Unspecified deformity of ankle and foot, acquired Hyperpiesia Arthritis Helicobacter pylori (H. pylori) infection HTN (hypertension) Prostate nodule Actinic keratosis Pre-diabetes Surgical History H/O colonoscopy Hx of appendectomy History of esophagogastroduodenoscopy (EGD) History of total right knee replacement Hx of right knee surgery (~2000) Social History Are you a primary patient care secretary to a significant other at home: No Do you presently have visiting nurse or other home services: No Patient Tobacco Use Status: Former Tobacco user Current occupational status: retired Current occupation: Right hand dominate Review of Systems Const All systems reviewed & are unremarkable except as noted in HPI and below Physical Exam Const General: cooperative, healthy appearing and no acute distress Resp Effort & Inspection: normal respiratory effort and able to speak in complete sentences Cardio Rate: regular rate Peripheral pulses: Peripheral pulses 2+ throughout GI Palpation (GI): Soft to palpation Skin Lesions: no lesions Rashes: no rashes Extrem Other: Left knee: Incision site is clean, dry, and intact. [place] are intact. No surrounding erythema or drainage. No signs of infection. ROM is 20-90 degrees. NVI. Assessment & Plan Assessment & Plan (1) Status post total left knee replacement: Code(s): Z96.652 - Presence of left artificial knee joint Category: Surgical Plan Mr. Sevilla is an 83-year-old male who presents in the office today for a 17 days status post left total knee arthroplasty which was performed on 07/20/[address] Castro. While in the office today, the patient reports he is doing well; however, he continues to have some pain. He rates his current pain at 3-5/10 on the pain scale. He denies any concerns today. Yuliya were removed, and steri-strips were applied. The patient will continue with his physical therapy sessions. We discussed antibiotics for an antibiotic prophylactically for possible dental work in the future; however, the patient has a prescription at home and he will contact the office when needed refills. The patient was educated they should not have any major dental work for the first 3 months post op after the left total knee arthroplasty. Follow up will be in [address] Castro, or sooner if needed. X-rays of the left knee which were obtained while in the office today and were reviewed by me, Radha Lino PA-C, revealed intact orthopedic hardware with proper alignment of the left knee. Orders: Orders XR knee RT 1V Today M25.569 - Pain in unspecified knee Patient Instructions: Scribed by Idalia Hu medical technologist prn, for Radha Lino PA-C on 08/06/24 at 12:40 pm EST. Coding Level of Care Code Global (87977) Diagnoses Status post total left knee replacement Z96.652
== END 2024-08-06 13:01 | disposition home or self-care (01) ==
PROVIDERS: PCP Internal Medicine; Visit Provider Physician Assistant
DX: Z96.652 Presence of left artificial knee joint (principal)
CPT/HCPCS: 99024

== ENCOUNTER 2024-08-27 07:58 | Outpatient (AMB) | payer MEDICARE, SELFPAY ==
--- NOTE | 2024-08-27 07:59 | MHC.OFFVIS ---
Intake Visit Reasons: L TKA w/ 07/20/24 Intake Note: Gregory is a 83 yea old male who presents with complaints of mild intermittent discomfort in his left knee after undergoing left total knee replacement surgery on 07/20/2024. Denies any fevers or chills. He continues to go to physical therapy at [facility] in [place]. He does walk with a cane when he is out of his home. Allergies aspirin Allergy (Severe, Verified 08/27/24 08:00) Hives codeine Allergy (Intermediate, Verified 08/27/24 08:00) Hives propoxyphene [From Darvon] Allergy (Intermediate, Verified 08/27/24 08:00) Hives lisinopril Adverse Reaction (Intermediate, Verified 08/27/24 08:00) Cough Medication List - Last Reconciled 08/27/24 by Portillo Castro MD acetaminophen 650 mg (2 x 325 mg) PO Q6H PRN 30 days amoxicillin 2,000 mg PO ONCE PRN cholecalciferol (vitamin D3) 50 mcg PO DAILY clonidine 1 patch topical SA docusate sodium 100 mg PO BID 7 days enoxaparin 40 mg (0.4 mL) subcut Q24H 28 days ipratropium bromide 2 sprays intranasal TID losartan 50 mg PO DAILY oxycodone 5 mg PO Q4H PRN 7 days oxycodone 5 mg PO Q6H PRN spironolacton-hydrochlorothiaz 25-25 mg 1 tab PO DAILY tamsulosin 0.4 mg PO BEDTIME walker Folding front wheeled walker [facility] Medical History Former smoker CKD (chronic kidney disease) Bowel obstruction Osteoarthritis Pain in limb Pure hypercholesterolemia Hearing loss Unspecified deformity of ankle and foot, acquired Hyperpiesia Arthritis Helicobacter pylori (H. pylori) infection HTN (hypertension) Prostate nodule Actinic keratosis Pre-diabetes Surgical History H/O colonoscopy Hx of appendectomy History of esophagogastroduodenoscopy (EGD) History of total right knee replacement Hx of right knee surgery (~2000) Social History Are you a primary career services representative to a significant other at home: No Do you presently have visiting nurse or other home services: No Patient Tobacco Use Status: Former Tobacco user Current occupational status: retired Current occupation: Right hand dominate Physical Exam Extrem Other: Left knee examination shows that the surgical incision is well healed, no erythema, full active extension and flexion to 120 degrees, his patella tracks well Assessment & Plan Assessment & Plan (1) Left knee pain: Code(s): M25.562 - Pain in left knee Category: Medical Plan Mr. Sevilla is doing very well after undergoing left total knee replacement surgery on 07/20/2024. He will continue going to formal physical therapy for now. He will gradually transition to a home exercise program. He does know to take antibiotics before any dental work. He will contact me prior to his follow-up appointment in 2 months should any questions or concerns arise. Feel free to call me at any time should questions regarding his orthopedic management arise. Coding Level of Care Code Global (05374) Diagnoses Left knee pain M25.562
== END 2024-08-27 08:26 | disposition home or self-care (01) ==
PROVIDERS: PCP Internal Medicine; Visit Provider Orthopaedic Surgery
DX: M25.562 Pain in left knee (principal)
CPT/HCPCS: 99024

== ENCOUNTER → 2024-08-27 07:58 | Outpatient (BNVA) | payer MEDICARE, SELFPAY | PROVIDERS: PCP Internal Medicine; Visit Provider Orthopaedic Surgery | DX: M25.562 Pain in left knee (principal); Z96.652 Presence of left artificial knee joint; Z79.891 Long term (current) use of opiate analgesic | CPT/HCPCS: 99212 ==

== ENCOUNTER 2024-11-26 10:29 | Outpatient (AMB) | payer MEDICARE, SELFPAY ==
--- NOTE | 2024-11-26 10:41 | A.OFFVIS_ITS ---
Vital Signs 11/26/24 10:52 Height 5 ft 7 in Weight 177 lb BMI 27.7 Intake Visit Reasons: OV-L TKA w/DR 07/20/24 Intake Note: Gregory is an 84 year old male who presents today for follow up after undergoing a left knee arthroplasty on 07/20/24. He reports mild intermittent discomfort in his left knee. He denies any fevers or chills. He takes Tylenol as needed for his discomfort. He continues with his home exercise program. Allergies aspirin Allergy (Severe, Verified 11/26/24 10:51) Hives codeine Allergy (Intermediate, Verified 11/26/24 10:51) Hives propoxyphene [From Darvon] Allergy (Intermediate, Verified 11/26/24 10:51) Hives lisinopril Adverse Reaction (Intermediate, Verified 11/26/24 10:51) Cough Medication List - Last Reviewed 11/26/24 by LILI Rodriguez acetaminophen 650 mg (2 x 325 mg) PO Q6H PRN 30 days amoxicillin 2,000 mg PO ONCE PRN cholecalciferol (vitamin D3) 50 mcg PO DAILY clonidine 1 patch topical SA docusate sodium 100 mg PO BID 7 days enoxaparin 40 mg (0.4 mL) subcut Q24H 28 days ipratropium bromide 2 sprays intranasal TID losartan 50 mg PO DAILY spironolacton-hydrochlorothiaz 25-25 mg 1 tab PO DAILY tamsulosin 0.4 mg PO BEDTIME walker Folding front wheeled walker [facility] Medical History Former smoker CKD (chronic kidney disease) Bowel obstruction Osteoarthritis Pain in limb Pure hypercholesterolemia Hearing loss Unspecified deformity of ankle and foot, acquired Hyperpiesia Arthritis Helicobacter pylori (H. pylori) infection HTN (hypertension) Prostate nodule Actinic keratosis Pre-diabetes Surgical History H/O colonoscopy Hx of appendectomy History of esophagogastroduodenoscopy (EGD) History of total right knee replacement Hx of right knee surgery (~2000) Social History Are you a primary rn progressive care unit to a significant other at home: No Do you presently have visiting nurse or other home services: No Patient Tobacco Use Status: Former Tobacco user Current occupational status: retired Current occupation: Right hand dominate Physical Exam Vital Signs: BMI result Body Mass Index 27.7 Const Other: Well-nourished well-developed very friendly male awake alert and oriented x3 in no acute distress Extrem Other: Bilateral lower extremity examination shows good capillary refill, no skin lesions noted, normal sensation light touch Left knee examination shows that the surgical incision is well healed, no erythema, range of motion from -3 degrees to 115 degrees, no instability Results Reviewed Results Reviewed: X-rays of the patient's left knee taken today show a total knee arthroplasty in good position with no signs of loosening, no acute bony abnormalities Assessment & Plan Assessment & Plan (1) Left knee pain: Code(s): M25.562 - Pain in left knee Category: Medical Plan Mr. Sevilla continues to do very well after undergoing left total knee replacement surgery on 07/20/2024. He will continue with his home program. He does know to take antibiotics before any dental work. He will contact me prior to his annual follow-up appointment should any questions or concerns arise. Feel free to call me at any time should questions regarding his orthopedic management arise. I spent 20 minutes in reviewing the patient's records and imaging studies, seeing the patient and documenting in the medical record. Orders: Orders XR knee LT 3V Today M25.562 - Pain in left knee Coding Level of Care Code Est Pt Level 3 (71194) Complex EM visit Add On G2211 Diagnoses Left knee pain M25.562
[2024-11-26 10:52] VITALS: BMI 27.7
== END 2024-11-26 11:02 | disposition home or self-care (01) ==
PROVIDERS: PCP Internal Medicine; Visit Provider Orthopaedic Surgery
DX: M25.562 Pain in left knee (principal)
CPT/HCPCS: 99213; G2211

== ENCOUNTER → 2024-11-26 10:44 | Outpatient (BNV) | payer MEDICARE, SELFPAY | PROVIDERS: Visit Provider Radiology Diagnostic Radiology | DX: M25.562 Pain in left knee (principal); Z96.652 Presence of left artificial knee joint | CPT/HCPCS: 73562 ==

== ENCOUNTER 2024-11-26 12:19 | Outpatient (REF) | payer MEDICARE, SELFPAY ==
--- NOTE | ~2024-11-26 | XR_ITS ---
EXAMINATION: XR KNEE 3 VIEWS LEFT HISTORY: M25.562 - Pain in left knee COMPARISON: Comparison is made with the prior examination dated 08/06/2024. FINDINGS: Three views of the left knee are submitted. The patient is again noted to be status post total knee arthroplasty. The orthopedic elements are in anatomic alignment. There is no radiographic evidence of loosening. There is no fracture or dislocation. The soft tissues are unremarkable. XR/XR knee LT 3V IMPRESSION: Status post left total knee arthroplasty. Electronically signed by: Lowell Perez MD 11/26/2024 03:38 PM EST
--- OUTSIDE RECORDS SUMMARY | 2024-11-27 14:23 | XMS_ITS | Clinical Summary ---
Author Organization [facility] Address [address] [place] [address] Phone Care Team Providers Care Film Processing Shift Supervisor Name Role Phone Amarjit Romero MD Primary Care Provider [phone] Allergies Active Allergy Reactions Criticality Noted Date Comments Aspirin 10/21/2006 Lisinopril Cough 02/10/2014 Propoxyphene 04/20/2019 Darvon [Pp-cap] Hives all over body Medications Medication Sig Dispensed Refills Start Date End Date Status cholecalciferol (VITAMIN D-3) 25 mcg (1,000 unit) tablet Take 1 Tablet by mouth. 08/27/2022 Active clobetasoL (Impoyz) 0.025 % cream Apply 1 Applicator topically 2 times daily. Apply small amount to right arm or affected area 07/01/2024 Active cloNIDine (ELUDPSQQ-GQX-9) 0.1 mg/[address] ONE PATCH ONTO THE SKIN EVERY 7 DAYS 02/27/2022 Active ipratropium (ATROVENT) 21 mcg (0.03 %) nasal spray 2 Sprays by Nasal route 3 times daily. 07/02/2024 Active omega 1-hss-xfm-fish oil (Fish OiL) 1,200 (144-216) mg capsule Take 1 Cap by mouth. Active sildenafiL (VIAGRA) 100 mg tablet TAKE ONE TABLET BY MOUTH NEEDED FOR ERECTILE DYSFUNCTION 06/07/2021 Active tamsulosin (FLOMAX) 0.4 mg 24 hr capsule TAKE ONE CAPSULE BY MOUTH EVERY DAY, 30 MINUTES AFTER SAME MEAL 90 capsule 1 11/09/2024 Active spironolactone-h ydroCHLOROthiazi de (ALDACTAZIDE) 25-25 mg per tablet TAKE ONE TABLET BY MOUTH EVERY DAY 90 tablet 1 11/09/2024 Active losartan (COZAAR) 50 mg tablet TAKE ONE TABLET BY MOUTH EVERY DAY 90 tablet 1 11/09/2024 Active losartan (COZAAR) 50 mg tablet TAKE ONE TABLET BY MOUTH EVERY DAY 05/06/2024 5 Discontinued spironolactone-h ydroCHLOROthiazi de (ALDACTAZIDE) 25-25 mg per tablet TAKE ONE TABLET BY MOUTH EVERY DAY 05/06/2024 5 Discontinued tamsulosin (FLOMAX) 0.4 mg 24 hr capsule TAKE ONE CAPSULE BY MOUTH EVERY DAY 30 MINUTES AFTER THE SAME MEAL DAILY 05/06/2024 5 Discontinued Active Problems Problem Noted Date Diagnosed Date Pre-diabetes 04/29/2023 Actinic keratosis 11/23/2021 Prostate nodule 09/23/2018 Overview (09/17/2024): Follows with urology Essential hypertension 10/03/2017 Arthritis, midfoot 05/20/2017 Hyperpiesia 05/13/2015 Deformity of ankle and foot, acquired 01/29/2013 Overview (09/17/2024): Pt declined evaluation IMO update Hearing loss 11/23/2010 Overview (09/17/2024): Hearing aids, follows with ENT Pure hypercholesterolemia 10/22/2007 Osteoarthritis of ankle and foot 12/03/2006 Pain in limb 12/03/2006 Encounters Date Type Department Care Team Description 10/22/2024 9:30 AM EST Office Visit Adult Medicine [address] [phone] Amarjit Romero MD Prostate cancer screening (Primary Dx); Prostate nodule; Pure hypercholesterolemia; Essential hypertension; Hyperglycemia; AMD (age related macular degeneration) 08/31/2024 Telephone Adult Medicine [address] [phone] Amarjit Romero MD MANAGEMENT INFORMATION SYSTEMS DIRECTOR Feedback (Insurance referral to Dr. Portillo Castro ([facility] from Last 3 Months Immunizations Name Administration Dates Next Due Pfizer SARS-CoV-2 COVID-19, mRNA, LNP-S, preservative free 01/03/2021,12/11/2020 Surgical History Surgery Date Site/Laterality Comments APPENDECTOMY 1948 PROCEDURE: HISTORICAL APPENDECTOMY COLONOSCOPY 09/11/13 PROCEDURE: HISTORICAL COLONOSCOPY; COMMENT: normal; would not repeat OTHER SURGICAL HISTORY 1965 PROCEDURE: MA RDCTJ VOLVULUS INTUSSUSCEPTION INT HRNA LAPT; COMMENT: from appendix surgery Medical History Medical History Date Comments Lipoma of other specified sites DX:Lipoma of other specified sites; COMMENT: angiolipoma, s/p surgery 2005, By Jatin Damon shoulder Esophageal reflux DX:Esophageal reflux; COMMENT: s/P EGD, H pylori (-), 05/09 Osteoarthrosis, unspecified whether generalized or localized, lower leg DX:Osteoarthrosis, unspecified whether generalized or localized, lower leg; COMMENT: s/p orthroscopic surgery, Dr. Jesus Historical Medical DX 10/22/2007 DX:Foot de formities Hearing loss 11/23/2010 DX:Hearing loss Unspecified deformity of ank le and foot, acquired 01/29/2013 DX:Unspecified deformity of ankle and foot, acquired Hyperpiesia 05/13/2015 DX:Hyperpiesia Essential hypertension 10/03/2017 DX:Essent ial hypertension Prostate nodule 09/23/2018 DX:Prostate nodu le; COMMENT: Follows with urology Actinic keratosis, hx of DX:Acti bonifacio keratosis, hx of Family History Medical History Relation Name Comments Other: ?thyroid ca/throat ca Brother Other: bronchitis Father ETOH, toba co Stroke Maternal Grandmother bleedin g stroke age 70 Dementia Mother lives at age 94 , 2011 Stroke Paternal Grandmother age 80 Lung cancer Sister smoker Relation Name Status Comments Brother Father Maternal Grandmother Mother Paternal Grandmother Sister Social History Tobacco Use Types Packs/Day Years Used Date Smoking Tobacco: Former Cigarettes 1.5 35.1 1 11/12/1953 - 11/04/1989 Smokeless Tobacco: Never Tobacco Cessation:Counseling Given: Not Answered Alcohol Use Standard Drinks/Week Comments Yes 0 (1 standard drink = 0.6 oz pur e alcohol) Housing Instability Answer Date Recorde d Are you worried that in the next 2 months you may not have stable housing? No 10/21/2024 Food Access & Nutrition Answer Date Rec orded Do you have access to a vari ety of food including fruits and vegetables? Yes 10/21/2024 Access to Healthcare Answer Date Record ed Within the last 3 months, ho w many times did you visit the emergency department for your medical care? 0 10/21/2024 Health Literacy Answer Date Recorded How often do you need to hav e someone help you when you read instructions, pamphlets, or other written material from your doctor or pharmacy? Never 10/21/2024 Caregiver: How often do you need to have someone help you when you read instructions, pamphlets, or other written material from your doctor or pharmacy? Not on file 10/21/2024 Financial Risk Answer Date Recorded How hard is it for you to pa y for the very basics like food, housing, medical care, and air conditioning / heating? Not very hard 10/21/2024 Transportation Answer Date Recorded Has the lack of transportati on kept you from meetings, work, or from getting things needed for daily living? No Has the lack of transportati on kept you from medical appointments or from getting medications? No 10/21/2024 Social Isolation Answer Date Recorded How often do you feel lonely or isolated from th ose around you? Never 10/21/2024 Food Risk Answer Date Recorded Within the past 12 months we worried whether our food would run out before we got money to buy more. Never true 10/21/2024 Within the past 12 months th e food we bought just didn't last and we didn't have money to get more. Never true 10/21/2024 Dependent Care Answer Date Recorded Do you need help finding or paying for care for your loved ones. For example, child advocate or elderly care for an older adult? No 10/21/2024 Education Answer Date Recorded Do you think completing more education or training, like finishing a GED, going to college, or learning a trade, would be helpful for you? No 10/21/2024 Employment and Income Answer Date Recor ded During the last four weeks, have you been actively looking for work? No 10/21/2024 Living Situation Answer Date Recorded What is your living situation? 1 12/22/2023 Sex and Gender Information Value Date Recorded Sex Assigned at Not on file Gender Identity Not on file Sexual Orientation Not on file Job Start Date Occupation Industry Not on file Not on file Not on file Obstetrics History Last Filed Vital Signs Vital Sign Reading Time Taken Comments Blood Pressure 138/68 10/22/2024 10:20 AM EST Pulse 66 10/22/2024 10:20 AM EST Temperature 36.1 ??C (96.9 ??F) 10/22/2024 10:[address] Respiratory Rate 14 10/22/2024 10:20 AM EST Oxygen Saturation - - Inhaled Oxygen Concentration - - Weight 83.9 kg (185 lb) 10/22/2024 10:20 AM EST Height 170.2 cm (5' 7 ) 10/22/2024 10:20 AM EST Body Mass Index 28.98 10/22/2024 10:20 AM EST Plan of Treatment Health Maintenance Due Date Last Done Comments Medicare Annual Wellness Visit 10/11/2022 COVID-19 Vaccine ( season) 2024 09/05/2023, 03/13/2022, 08/02/2021, Additional history exists Hypertension/CHF/CAD Annual BMP Blood Test 06/29/2025 06/29/2024, 06/29/2024, 03/31/2024 Depression Screening 10/21/2025 10/21/2024 Social Influencers of Health Screening 10/21/2025 10/21/2024 Falls Risk Assessment 10/22/2025 10/22/2024 Cholesterol Screening (Lipid Panel) 05/29/2026 05/29/2021 DTaP,Tdap,and Td Vaccines (3 - Td or Tdap) 09/05/2033 09/05/2023, 10/21/2006 Hepatitis A Vaccines Aged Out 03/26/2018 No long er eligible based on patient's age to complete this topic Pneumococcal Vaccine: 65+ Years Completed 01/21/2020, 12/11/2016, 10/22/2007 Zoster Vaccines Completed 01/21/2020, 11/04, 02/12/2013 RSV Immunization Patients 60+ Years Old Completed 08/07/2023 Influenza Vaccine Completed 08/14/2024, , 08/09/2022, Additional history exists HIB Vaccines Aged Out No longer eligi ble based on patient's age to complete this topic HPV Vaccines Aged Out No longer eligi ble based on patient's age to complete this topic Hepatitis B Vaccines Aged Out No long er eligible based on patient's age to complete this topic IPV Vaccines Aged Out No longer eligi ble based on patient's age to complete this topic MMR Vaccines Aged Out No longer eligi ble based on patient's age to complete this topic Meningococcal ACWY Vaccine Aged Out N o longer eligible based on patient's age to complete this topic RSV Immunization Patients Under 20 months Aged Out No longer eligible based on patient's age to complete this topic Varicella Vaccines Aged Out No longer eligible based on patient's age to complete this topic Procedures Procedure Name Priority Date/Time Associated Diagnosis Comments ANNUAL BMP BLOOD TEST Routine 06/29/2024 LIPID PANEL Routine 05/29/2021 from Last 3 Months or Most Recently Relevant to Health Maintenance Results * Annual BMP Blood Test (06/29/2024) Pathologist [facility] Annual BMP Blood Test abstracted Historical Provider MD LUIS FERNANDO CALDERON E * (ABNORMAL) Lipid panel (05/29/2021) Pathologist [facility] [place] LDL/HDL Ratio 4 0 - 4 Triglycerides 142 0 - 150 mg/dL Cholesterol 196 0 - 200 mg/dL HDL 55 40 mg/dL LDL Cholesterol 113(A) 0 - 100 mg/dL Blood Venous blood specimen / Unknown Historical Provider LAB BLOOD ORDERAB LES from Last 3 Months or Most Recently Relevant to Health Maintenance Advance Directives Documents on File Type Date Recorded Patient Wound Care Coordinator Expl anation Health Care Decision (hx) 07/19/2022 JESSICA PEREZ DIRECTIVE Care Teams Film Processing Shift Supervisor Relationship Specialty Start Date End Date Amarjit Romero MD [address] [place] [address] PCP - General 09/11/06
--- OUTSIDE RECORDS SUMMARY | 2024-11-27 14:23 | XMS_ITS | Clinical Summary ---
Author Organization [facility] Address [address] [place] [address] Care Team Providers Care Tv Technician Name Role Phone Amarjit Romero MD Primary Care Provider [phone] Allergies Active Allergy Reactions Criticality Noted Date Comments Aspirin 10/21/2006 Lisinopril 02/10/2014 Other reaction(s): Cough Propoxyphene 04/20/2019 Hives all over body Medications Medication Sig Dispensed Refills Start Date End Date Status amLODIPine (NORVASC) tablet 5 mg 0 10/19/2019 Active ciclopirox (PENLAC) 8 % solution 2 drops to each toenail once daily 0 03/12/2018 Active hydroCHLOROthiazid e (HYDRODIURIL) tablet 25 mg TAKE 1 TABLET BY MOUTH EVERY DAY 0 11/09/2019 Active predniSONE (DELTASONE) tablet 20 mg 0 12/04/2019 Active sildenafil (VIAGRA) 100 MG tablet TAKE ONE TABLET BY MOUTH NEEDED FOR ERECTILE DYSFUNCTION 0 11/05/2019 Active losartan (COZAAR) 100 MG tablet TAKE 1 TABLET BY MOUTH DAILY FOR 180 DAYS 0 11/28/2020 Active spironolactone-hyd rochlorothiazide (ALDACTAZIDE) 25-25 MG per tablet 0 01/20/2021 Active [place]-3 Fatty Acids (Fish Oil) 1200 MG CAPS Take 1 capsule by mouth. 0 Active NIFEdipine ER (ADALAT CC) 60 MG 24 hr tablet TAKE ONE TABLET BY MOUTH EVERY DAY 0 12/27/2021 Active cloNIDine (CATAPRES-TTS) 0.1 MG/24HR PTWK PLACE ONE PATCH ONTO THE SKIN EVERY 7 DAYS 0 05/16/2022 Active oxyCODONE (ROXICODONE) 5 MG immediate release tablet Take 1-2 tabs every 4 hours as needed for pain 50 tablet 0 07/24/2022 Active Acetaminophen Extra Strength 500 MG tablet Take 1,000 mg by mouth 3 (three) times a day. 0 07/17/2022 Active Senna Plus 8.6-50 MG Take 2 tablets by mouth every evening. 0 07/17/2022 Active Jantoven 1 MG tablet TAKE 5 PILLS (5MG) BY MOUTH DAILY AT DINNER UNLESS OTHERWISE INSTRUCTED BY DR RAM'S OFFICE 0 07/17/2022 Active amoxicillin (AMOXIL) 500 MG tablet Take 4 tabs 1 hour prior to dental appointment 20 tablet 3 07/31/2022 Active tamsulosin (FLOMAX) 0.4 MG CAPS Take 1 capsule (0.4 mg total) by mouth every night at bedtime. 30 capsule 0 08/14/2022 Active tamsulosin (FLOMAX) 0.4 MG CAPS Take 1 capsule (0.4 mg total) by mouth daily. 30 capsule 5 09/11/2022 Active Active Problems Problem Noted Date Diagnosed Date Prostate nodule 09/23/2018 Overview: Overview: Follows with urology History of Helicobacter pylori infection 017 Overview: Overview: Per pt, had EGD 3 med treatment by GI at [facility] over 20 years agon Arthritis, midfoot 05/20/2017 Essential hypertension 05/13/2015 Deformity of ankle and foot, acquired 01/29/2013 Overview: Overview: Pt declined evaluation IMO update Hearing loss 11/23/2010 Overview: Overview: Hearing aids, follows with ENT Pure hypercholesterolemia 10/22/2007 Osteoarthritis of ankle and foot 12/03/2006 Pain in limb 12/03/2006 Family History Medical History Relation Name Comments Arthritis Brother Arthritis Sister Cancer Sister Relation Name Status Comments Brother Sister Social History Tobacco Use Types Packs/Day Years Used Date Smoking Tobacco: Former Cigarettes Q uit: 11/16/1989 Smokeless Tobacco: Never Alcohol Use Standard Drinks/Week Comments No 0 (1 standard drink = 0.6 oz pur e alcohol) Sex and Gender Information Value Date Recorded Sex Assigned at Not on file Gender Identity Not on file Sexual Orientation Not on file Job Start Date Occupation Industry Not on file Not on file Not on file Last Filed Vital Signs Vital Sign Reading Time Taken Comments Blood Pressure - - Pulse - - Temperature - - Respiratory Rate - - Oxygen Saturation - - Inhaled Oxygen Concentration - - Weight 76.2 kg (168 lb) 06/12/2022 2:26 PM EDT Height 170.2 cm (5' 7 ) 06/12/2022 2:26 PM EDT Body Mass Index 26.31 06/12/2022 2:26 PM EDT Plan of Treatment Health Maintenance Due Date Last Done Comments Depression Screening 1954 Preventative Health Evaluation 1960 DTap / Tdap / Td (1 - Tdap) 10/22/2006 10/21/2006 Fall Risk Assessment 2007 RSV Adult > 60+ Yrs or (1 - 1-dose 75+ series) 2017 COVID-19 Vaccine ( season) 2024 01/03/2021, 12/11/2020 Influenza Vaccine (#1) 2024 8, 08/25/2017, 07/22/2016, Additional history exists Pneumococcal Vaccine Completed 01/21/2020, 12/11/2016, 10/22/2007 Shingrix-Zoster Vaccine Completed 01/21/2020, 11/20 Hepatitis B Vaccines Aged Out No long er eligible based on patient's age to complete this topic RSV Ped < 20 months Aged Out No longe r eligible based on patient's age to complete this topic Care Teams Tv Technician Relationship Specialty Start Date End Date Amarjit Romero MD PCP - General Internal Medicine 12/15/19
--- OUTSIDE RECORDS SUMMARY | 2024-11-27 14:23 | XMS_ITS | Patient Health Record ---
Author Organization [facility] Address [address] [facility] [place] [address] Care Team Providers Care Jig Bore Operator Name Role Phone Heather HERNANDEZ, Amarjit Mcneill Primary Care Provider Unav ailable Black, Anne Unavailable [phone] Allergies Allergen (clinical drug ingredient) Drug/Non Drug Allergy documented on EMR Reaction Allergy Type Onset Date Status aspirin Aspirin hives Drug Allergy Active Codeine Phosphate hives Drug Allergy Active Darvon Unknown Drug Allergy Active lisinopril Lisinopril cough Drug Allergy Activ e Results Component Value Reference Range Notes X ray : Foot, left 3V Reviewed date:01/06/2024 11:04:04 AM Interpretation:See Examination above Performing Lab: Notes/Report: See Examination above X ray : Foot, right 3V Reviewed date:01/06/2024 11:03:52 AM Interpretation:See Examination above Performing Lab: Notes/Report: See Examination above Reason For Referral Diagnosis 1 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) Diagnosis 2 Midfoot collapse of right lower extremity (M21.6X1) Diagnosis 3 Other hammer toe(s) (acquired), left foot (M20.42) Diagnosis 4 Other hammer toe(s) (acquired), right foot (M20.41) Diagnosis 5 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) Diagnosis 6 Osteoarthritis of ri ght ankle and foot (M19.071) Diagnosis 7 Tinea unguium (B35.1 ) Diagnosis 8 Pain in right toe(s) (M79.674) Diagnosis 9 Pain in left toe(s) (M79.675) Referring Provider First Name Amarjit bolden Referring Provider Last Name Romero Referred [facility] Referred Provider Anne Garcia Referred Address [address],[place],[address] Referred Provider Specialty Podiatry Referral Priority Routine Medications Medication SIG (Take, Route, Frequency, Duration) Notes Start Date End Date Status Fish Oil 1200 MG 1 capsule Orally Onc e a day for 30 day(s) Active Losartan Potassium 50 MG 1 tablet Orally Once a day for 30 day(s) Active cloNIDine HCl 0.1 MG 1 tablet Orally Onc e a day for 30 day(s) Active One-A-Day Mens Not-T aking Ciclopirox 8 % 1 application Externally Once a day for 30 days 09/23/2023 Active Orthopedic Extra Depth Shoes With Custom Heat Molded Multidensity Innersoles 1 Pair shoes with 3 Pair custom heat molded innersoles Wear Daily for 365 days 05/18/2024 Active Spironolactone-HCTZ 25-25 MG 1 tablet Orally Once a day for 30 day(s) Active Social History Tobacco Use: Social History Observation Description Date Details (start date - stop date) Former Smoker NA - NA Tobacco Use/Smoking Question Answer Notes Are you a: former smoker Additional Findings: Tobacco Non-User Ex-cigaret te smoker Alcohol Screen Question Answer Notes Did you have a drink contain ing alcohol in the past year? Yes How often did you have a dri nk containing alcohol in the past year? Monthly or less (1 point) Points 1 Interpretation Negative Tobacco use other than smoking: Question Answer Notes Are you an other tobacco user? No Problems Problem Type SNOMED Code ICD Code Onset Dates Problem Status W/U Status Risk Notes Problem Acquired hammer toe of right foot (2655877060749087 ) Other hammer toe(s) (acquired), right foot (M20.41) Active confirmed Response to treatment, Improvemen t Problem Acquired hammer toe of left foot (4602621745562116 ) Other hammer toe(s) (acquired), left foot (M20.42) Active confirmed Response to treatment, Improvemen t Problem [id number] Midfoot collapse of right lower extremity (M21.6X1) Active confirmed Problem Localized, primary osteoarthritis of the ankle and/or foot () Osteoarthritis of right ankle and foot (M19.071) Active confirmed Problem 096855131 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) Active confirmed Problem Localized, primary osteoarthritis of the ankle and/or foot () 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 Problem PlantarFlexion of metatarsal of left foot (M21.6X2) Active confirmed Problem Localized, primary osteoarthritis of the ankle and/or foot () Arthritis of joint of lesser toe, right (M19.071) Active confirmed Vital Signs Blood pressure diastolic 79 mm Hg 08/31/2024 Height 5 ft 7 in in 08/31/2024 Blood pressure systolic 143 mm Hg 08/31/2024 Weight 174 lbs 08/31/2024 BMI 27.25 kg/m2 08/31/2024 Procedures Procedure Date Ordered Date Performed Result Body Sit e 45085-VLZHTNI NAIL, 6 OR MORE 01/06/2024 N/A 22112-[id number] NAIL, OR MORE 05/18/2024 N/A 49267-[id number] NAIL, 6 OR MORE 08/31/2024 N/A Encounters Encounter Location Date Provider Diagnosis [facility] [address] 01/06/2024 Anne Black Tinea unguium B35.1 ; Osteoarthritis of left ankle and foot M19.072 ; Pain in right toe(s) M79.674 ; Pain in left toe(s) M79.675 ; Midfoot collapse, 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 ; Midfoot collapse, right M21.6X1 ; Osteoarthritis of right ankle and foot M19.071 ; Pain in right foot M79.671 and Pain in left foot M79.[address] [facility] [address] 05/18/2024 Anne Black Pain in right toe(s) M79.674 ; Other hammer toe(s) (acquired), right foot M20.41 ; Arthritis of joint of lesser toe, right M19.071 ; Subluxation of metatarsophalangeal joint of toe, initial encounter S93.149A ; Tinea unguium B35.1 ; Pain in left toe(s) M79.675 ; Midfoot collapse, 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 and Midfoot collapse, right M21.6X1 [facility] [place] [address] [place] [address] 08/31/2024 Anne Black Pain in right toe(s) M79.674 ; Other hammer toe(s) (acquired), right foot M20.41 ; Tinea unguium B35.1 ; Pain in left toe(s) M79.675 and Other hammer toe(s) (acquired), left foot M20.42 Assessments Encounter Date Diagnosis (ICD Code) Assessment Notes Treatment Notes Treatment Clinical Notes Section Notes 01/06/2024 Tinea unguium (ICD-1 0 - B35.1) 01/06/2024 Osteoarthritis of le ft ankle and foot (ICD-10 - M19.072) 05/18/2024 Pain in right toe(s) (ICD-10 - M79.674) 05/18/2024 Other hammer toe(s) (acquired), right foot (ICD-10 - M20.41) 08/31/2024 Other hammer toe(s) (acquired), right foot (ICD-10 - M20.41) Response to treatment,Impr ovement 08/31/2024 Pain in right toe(s) (ICD-10 - M79.674) 08/31/2024 Tinea unguium (ICD-1 0 - B35.1) 05/18/2024 Arthritis of joint o f lesser toe, right (ICD-10 - M19.071) 01/06/2024 Pain in right toe(s) (ICD-10 - M79.674) 01/06/2024 Pain in left toe(s) (ICD-10 - M79.675) 05/18/2024 Subluxation of metatarsophalangeal joint of toe, initial encounter (ICD-10 - S93.149A) 08/31/2024 Pain in left toe(s) (ICD-10 - M79.675) 08/31/2024 Other hammer toe(s) (acquired), left foot (ICD-10 - M20.42) Response to treatment,Impr ovement 01/06/2024 Midfoot collapse, le ft (ICD-10 - M21.6X2) 05/18/2024 Tinea unguium (ICD-1 0 - B35.1) 05/18/2024 Pain in left toe(s) (ICD-10 - M79.675) 01/06/2024 Midfoot collapse, ri ght (ICD-10 - M21.6X1) 01/06/2024 Osteoarthritis of ri ght ankle and foot (ICD-10 - M19.071) 05/18/2024 Midfoot collapse, le ft (ICD-10 - M21.6X2) 01/06/2024 Pain in right foot (ICD-10 - M79.671) 05/18/2024 Midfoot collapse, ri ght (ICD-10 - M21.6X1) 01/06/2024 Pain in left foot (ICD-10 - M79.672) Plan Of Treatment Pending Test Test Name Order Date [id number] NAIL, 6 OR MORE 11/12/2022 [id number] NAIL, 6 OR MORE 02/25/2023 37225-PCZVCDA NAIL, 6 OR MORE 06/10/2023 27412-[id number] NAIL, 6 OR MORE 09/23/2023 75551-[id number] NAIL, 6 OR MORE 01/06/2024 56488-[id number] NAIL, 6 OR MORE 05/18/2024 99199-[id number] NAIL, 6 OR MORE 08/31/2024 Next Appt Details Provider Name:Anne Alejo Jose , 12/10/2024 08:00:00 AM, [address] [place], [address], Insurance Providers Payer Name Payer Address Payer Phone Subscriber Number Group Number Insured Name Patient Relationship to Insured Coverage Start Date Coverage End Date [facility] [address] [place] [phone] [id number] Gregory Sevilla Self - patient is the insured Medical (General) History Medical History History ICD Code Arthritis High blood pressure Chicken pox Joint implants/screws Measles actinic keratosis prostate nodule hyperpiesia Hearing loss Hypercholesterolemia Surgical History Surgery Date(Month/Year) knee replacement 07/16/2022 appendectomy 194 colonoscopy 09/11/13 reduction of bowel obstruction 1966 Knee replacement 07/20/24
--- OUTSIDE RECORDS SUMMARY | 2024-11-27 14:23 | XMS_ITS | Clinical Summary ---
Author Organization [facility] Address [address] [place] [address] Phone Care Team Providers Care Foreign Exchange Student Coordinator Name Role Phone Amarjit Romero MD Primary Care Provider [phone] Allergies Active Allergy Reactions Criticality Noted Date Comments Aspirin 10/21/2006 Codeine Hives 04/20/2024 Lisinopril Other (see comments) 02/10/2014 Other reaction(s): Cough Propoxyphene 04/20/2019 Hives all over body Medications spironolactone- hydroCHLOROthia zide (ALDACTAZIDE) 25-25 MG per tablet Take 1 tablet by mouth 1 (one) time each day 2 Active losartan (COZAAR) 50 MG tablet Take 50 mg by mouth 1 (one) time each day 2 Active sildenafil (VIAGRA) 100 MG tablet TAKE ONE TABLET BY MOUTH NEEDED FOR ERECTILE DYSFUNCTION 0 Active Cholecalciferol (Vitamin D) 25 MCG (1000 UT) tablet Take 1 tablet by mouth 1 (one) time each day 60 tablet 3 2 Active amoxicillin (AMOXIL) 500 MG tablet Take 4 tabs 1 hour prior to dental appointment 2 Active tamsulosin (FLOMAX) 0.4 MG 24 hr capsule Take 0.4 mg by mouth 1 (one) time each day Active cloNIDine (Tqpkbqnj-QIM-3 ) 0.1 MG/24HR patch weeklyIndicatio ns:Chronic kidney disease, stage 2 (mild),Stage 3a chronic kidney disease (HCC),Hypertens reagan chronic kidney disease Place 1 patch on the skin every 7 (seven) days 13 patch 3 4 Active Active Problems Problem Noted Date Diagnosed Date Chronic kidney disease, stage 2 (mild) 2 Vitamin D deficiency 08/27/2022 Hypertensive chronic kidney disease 02/26/2022 Stage 3a chronic kidney disease 02/26/2022 Essential hypertension 05/13/2015 Resolved Problems Problem Noted Date Diagnosed Date Resolved Date Actinic keratosis 11/23/2021 02/26/2022 Prostate nodule 09/23/2018 02/26/2022 Overview (02/26/2022): Overview: Follows with urology Follows with urology History of Helicobacter pylori infection 10/02/2017 02/26/2022 Overview (02/26/2022): Overview: Per pt, had EGD 3 med treatment by GI at [facility] over 20 years agon Per pt, had EGD 3 med treatment by GI at [facility] over 20 years agon Inflammation of foot joint 05/20/2017 0 02/26/2022 Overview (08/04/2024): Replacing diagnoses that were inactivated after the 08/04/24 Regulatory Import Acquired deformity of ankle AND/OR foot 01/29/2013 02/26/2022 Overview (02/26/2022): Overview: Pt declined evaluation IMO update Pt declined evaluation IMO update Hearing loss 11/23/2010 02/26/2022 Overview (02/26/2022): Overview: Hearing aids, follows with ENT Hearing aids, follows with ENT Pure hypercholesterolemia 10/22/2007 Degenerative joint disease o f ankle AND/OR foot 12/03/2006 02/26/2022 Pain in limb 12/03/2006 02/26/2022 Immunizations Name Administration Dates Next Due H1N1 Inj Preservative Free 11/09/2009 Hepatitis A 03/26/2018 Influenza Split High Dose Pr eservative Free IM 07/20/2018,08/25/2017,07/22/2016,07/15 Influenza, Unspecified 08/07/2019,2013,07/17/2013,07/25,08/03/2011,08/19/2010,10/15/2009 ,08/05/2008,10/21/2006 Pneumococcal Conjugate 13-Valent 12/11/2016 Pneumococcal Polysaccharide 01/21/2020, 7 Shingrix 01/21/2020,11/20/2019 Td 10/21/2006 Zoster 02/12/2013 Social History Tobacco Use Types Packs/Day Years Used Date Smoking Tobacco: Never Smokeless Tobacco: Never Tobacco Cessation:Counseling Given: Not Answered Alcohol Use Standard Drinks/Week Comments Never 0 (1 standard drink = 0.6 oz pur e alcohol) Sex and Gender Information Value Date Recorded Sex Assigned at Not on file Legal Sex Male 3:56 PM EDT Gender Identity Not on file Sexual Orientation Not on file Last Filed Vital Signs Vital Sign Reading Time Taken Comments Blood Pressure 128/62 04/20/2024 1:08 PM EDT Pulse 51 04/20/2024 1:08 PM EDT Temperature - - Respiratory Rate - - Oxygen Saturation 97% 02/26/2022 3:54 PM EDT Inhaled Oxygen Concentration - - Weight 82.1 kg (181 lb) 04/20/2024 1:08 PM EDT Height - - Body Mass Index - - Plan of Treatment Upcoming Encounters Date Type Department Care Team (Late st Contact Info) Description 04/19/2025 1:15 PM EDT Office Visit [facility] [address] [address] Yovany Ochoa MD [address] [address] Health Maintenance Due Date Last Done Comments Influenza Vaccine (#1) 2024 9, 07/20/2018, 08/25/2017, Additional history exists Pneumococcal Vaccine: 65+ Years Completed 01/21/2020, 12/11/2016, 10/22/2007 Hepatitis B Vaccine Aged Out No longe r eligible based on patient's age to complete this topic Insurance [facility] [employer] Care Teams Foreign Exchange Student Coordinator Relationship Specialty Start Date End Date Amarjit Romero MD PCP - General Internal Medicine 08/27/22
--- OUTSIDE RECORDS SUMMARY | 2024-11-27 14:23 | XMS_ITS | Data Portability ---
Author Organization [place] [facility] Address [address] [place] [address] Care Team Providers Care Bending Roll Operator Name Role Phone MILDRED GALICIA Primary Care Provider Assessment Encounter Date Assessment Date Assessment LastModified by Organization Details LastModified Time 05/18/2024 05/18/2024 83-year-old male with sensorineural hearing loss using bilateral amplification presents for cerumen removal. Cerumen impaction removed bilaterally. Bilateral TMs are intact with aerated middle ear spaces. Follow up in 4 months for routine debridement. [email or web address] Not available 05/18/2024 13:46:10 09/25/2024 09/25/2024 84-year-old male with sensorineural hearing loss using bilateral amplification presents for cerumen removal. Cerumen impaction removed bilaterally. Bilateral TMs are intact with aerated middle ear spaces. Follow up in 4 months for routine debridement. [email or web address] Not available 09/25/2024 13:30:15 Plan of Treatment Reminders Order Date Submit Date Provider Last Modified By Organization Details Last Modified Time Details Appointments Establish ed 15 2024 09:00A M LANA HUBBARD PA-C Not available Not available Not available Lab None recorded. Referral None recorded. Procedures None recorded. Surgeries None recorded. Imaging None recorded. Medication Orders None recorded. Patient TargetsNo targets recorded. Patient InstructionsNo instructions recorded. Reason for Referral None Reported. Results Created Date Observation Date Name Description Value Unit Range Abnormal Flag Note LastModifiedBy Organization Detail LastModifiedTime 06/24/20 24 11/30/2019 imagi ng/di agnos tic resul t No observ ation record ed. [email or web address] Not Available 04:59:19 Result Notes None recorded. Problems Name Problem SNOMED Code Status Onset Date Resolution Date Notes Provider Name and Address Organization Details Recorded Time Sensorine ural hearing loss of bilateral ears 653618635 Active 2015 Sensorine ural hearing loss bilateral ly; [facility] Treatment : new problem (to examiner) : no additiona l workup planned N ote: Date Diagnosed : 02/09/2015 11:27 AM (389.18) ; Start Date : 5 Sensori neural hearing loss, bilateral ; Note: Date Diagnosed : 03/14/2016 1:15 PM (H90.3) Not Available [facility] 4 02:36:09 Impacted cerumen 53320588 Active 2014 Impacted cerumen; [facility] Treatment : new problem (to examiner) : no additiona l workup planned N ote: Date Diagnosed : 02/09/2015 11:27 AM (380.4) Not Available [facility] 4 02:36:16 Impacted cerumen in right ear 65164257400 66438 Active 2015 Impacted cerumen, right ear; Note: Date Diagnosed : 03/14/2016 3:08 PM (H61.21) Not Available [facility] 4 02:36:13 Impacted cerumen of bilateral ears 62738289561 15337 Active 2015 Impacted cerumen, bilateral ; Note: Date Diagnosed : 6 10:32 AM (H61.23) Not Available [facility] 4 02:36:07 Impacted cerumen in left ear 97043853715 36536 Active 2019 Impacted cerumen, left ear; Note: Date Diagnosed : 11/30/2019 1:31 PM (H61.22) Not Available [facility] 4 02:36:13 Problem Notes None recorded. Procedures Surgical History Date Name Laterality Status Provider Name and Address Organization Details Recorded Time 4 Cerumen removal without microscope bilat completed LANA HUBBARD PA-C [address] [place] [address], [phone], [facility] - [facility] 09/25/2024 13:09:24 4 Cerumen removal without microscope bilat completed LANA HUBBARD PA-C [address] [place] [address],[place] [address], [place], [address], [facility] - [facility] 05/18/2024 13:45:42 Imaging Results Imaging Date Name Status LastModified by Organiz ation Details LastModified Time 11/30/2019 imaging/diag nostic result completed [email or web address] Information not available 06/24/2024 04:59:19 Procedure Notes None recorded. Medical Equipment None Reported. Allergies Allergen ID Allergen Name Allergen Category Reaction Reaction Severity Criticality Documentation Date Start Date Code Code System Note Provider Name and Address Organization Details Recorded Time 33837 aspirin medicatio n other Not available Not available 03/17/2024 1191 RxNorm React ion: unkno wn, unspe cifie d;; Not Available [facility] 4 00:58:48 Medications Name Sig Start Date Stop Date Status Note LastModified by Organization Details LastModified Time losartan 50 mg tablet TAKE ONE TABLET BY MOUTH EVERY DAY active Not Available Not Available No t Available clonidine 0.1 mg/24 hr weekly transderm al patch PLACE 1 PATCH ONTO THE SKIN EVERY 7 DAYS active Not Available Not Available No t Available spironola ctone 25 mg-hydroc hlorothia zide 25 mg tablet TAKE ONE TABLET BY MOUTH EVERY DAY active Not Available Not Available No t Available sildenafi l 100 mg tablet 05/18 completed Medicati on ID: [id number] B rand Name: sildenaf il Send Method: E-Prescr ibed Sub s Allowed: subs OK Speci al Instruct ion: TAKE ONE TABLET BY MOUTH NEEDED FOR ERECTILE DYSFUNCT ION Medi cationGe nericNam e: sildenaf il Medic ation ID: [id number] B rand Name: sildenaf il Send Method: E-Prescr ibed Sub s Allowed: subs OK Speci al Instruct ion: TAKE ONE TABLET BY MOUTH NEEDED FOR ERECTILE DYSFUNCT ION Medi cationGe nericNam e: sildenaf il Not Available Not Available Not Available amoxicill in 500 mg tablet TAKE 4 TABLETS BY MOUTH ONCE ONE HOUR BEFORE ANY DENTAL WORK DIRECTED 09/25 completed Not Available Not Available Not Available pantopraz ole 20 mg tablet,de layed release 09/07 completed Medicati on ID: [id number] D uration Value: 30 Brand Name: pantopra zole Sen d Method: E-Prescr ibed Sub s Allowed: subs OK Speci al Instruct ion: TAKE 1 TABLET BY MOUTH ONCE DAILY Me dication GenericN astrid: pantopra zole Not Available Not Available Not Available ciclopiro x 8 % topical solution 09/25 completed Medicati on ID: [id number] B rand Name: ciclopir ox Send Method: E-Prescr ibed Sub s Allowed: subs OK Medic ationGen ericName : ciclopir ox Not Available Not Available Not Available tamsulosi n 0.4 mg capsule TAKE ONE CAPSULE BY MOUTH EVERY DAY, 30 MINUTES AFTER SAME MEAL active Not Available Not Available No t Available imiquimod 5 % topical cream packet 09/25 completed Medicati on ID: [id number] B rand Name: imiquimo d Send Method: E-Prescr ibed Sub s Allowed: subs OK Medic ationGen ericName : imiquimo d Not Available Not Available Not Available omeprazol e 20 mg capsule,d elayed release 03/10 completed Medicati on ID: [id number] Du ration Value: 90 Reason: () Brand Name: omeprazo le Send Method: E-Prescr ibed Sub s Allowed: subs OK Speci al Instruct ion: TAKE 1 CAP BY MOUTH DAILY. M edicatio nGeneric Name: omeprazo le Not Available Not Available Not Available hydrochlo rothiazid e 25 mg tablet 11/24 completed Medicati on ID: [id number] Du ration Value: 30 Brand Name: hydrochl orothiaz marshal Send Method: E-Prescr ibed Sub s Allowed: subs OK Speci al Instruct ion: TAKE 1 TABLET BY MOUTH DAILY. M edicatio nGeneric Name: hydrochl orothiaz marshal Not Available Not Available Not Available losartan 100 mg tablet 11/24 completed Medicati on ID: [id number] B rand Name: losartan Send Method: E-Prescr ibed Sub s Allowed: subs OK Speci al Instruct ion: TAKE ONE TABLET BY MOUTH EVERY DAY Medi cationGe nericNam e: losartan Not Available Not Available Not Available ipratropi um bromide 21 mcg (0.03 %) nasal spray INHALE TWO SPRAYS IN THE AFFECTED NOSTRIL S) THREE TIMES A DAY active Not Available Not Available No t Available oxycodone 5 mg tablet TAKE ONE TABLET BY MOUTH EVERY 6 HOURS NEEDED FOR PAIN active Not Available Not Available No t Available enoxapari n 40 mg/0.4 mL subcutane ous syringe active Not Available Not Available Not Available Vitals Date Recorded Body height Body mass index (BMI) Body weight Provider Name and Address Organization Details Last Updated DateTime 05/18/2024 170.18 cm 27.4 kg/m2 25210.66 g Rosette Rey [place] [facility] 05/18/2024 13:37:00 Date Recorded Body height Body weight Provider Name and Address Organization Details Last Updated DateTime 09/25/2024 170.18 cm 42946.66 g Mayra Butler [facility] 09/25/2024 13:17:10 Social History None recorded. Functional Status None recorded. Mental Status None recorded. Family History Nothing Reported. Medical History Condition Response Hypertension Y Past Encounters Encounter ID Performer Location Encounter Start Date Encounter Closed Date Diagnosis/Indication Diagnosis SNOMED-CT Code Diagnosis ICD10 Code Diagnosis Note [id number] BRE CRISTINA MD [facility] [address] [address] 05/18/2024 13:26:26 05/18/2024 14:04:45 Impacted cerumen of bilateral ears 0884694745 332486 H61.23 [id number] AISHA VAZQUEZ MD [facility] [address] [address] 09/25/2024 12:42:03 09/25/2024 13:27:18 Impacted cerumen of bilateral ears 4706939392 193498 H61.23 Health Concerns Section Related Observation LastModified by Organization Detai ls LastModified Time None Recorded Concern Status LastModified by Organization Details LastModified Time None Recorded Advance Directives Directive None Recorded Payers Encounter Date Sequence Insurance Name Policy Number Policy Rodriguez Covered Member ID Rodriguez Member ID Guarantor Name 05/18/2024 1 [facility] - DUAL ELIGIBLE - [employer] - SENIOR PLAN (MEDICARE REPLACEMENT/ ADVANTAGE - HMO) Gregory R Theroux [id number] Gregory R Theroux 09/25/2024 1 [facility] - DUAL ELIGIBLE - [employer] - SENIOR PLAN (MEDICARE REPLACEMENT/ ADVANTAGE - HMO) Gregory R Theroux [id number] Gregory R Theroux Notes Date Note Type Note Provider Name and Address Organization Details Recorded Time 05/18/2024 text/html 83-year-old male with sensorineural hearing loss using bilateral amplification presents for cerumen removal. No concerns today. BRE CRISTINA MD [address] [place] [address], [phone], [place] [facility] 05/19/2024 08:38:13 09/25/2024 text/html 84-year-old male with sensorineural hearing loss using bilateral amplification presents for cerumen removal. No concerns today. AISHA VAZQUEZ MD [address] [place] [address], [phone], [place] [facility] 09/26/2024 10:10:52
--- OUTSIDE RECORDS SUMMARY | 2024-11-27 14:23 | XMS_ITS ---
Author Organization [facility] Address [address] [facility] [place] [address] Care Team Providers Care Thread Clipper Name Role Phone Heather HERNANDEZ, Amarjit Mcneill Primary Care Provider Unav ailable Black, Anne Unavailable [phone] Allergies Allergen (clinical drug ingredient) Drug/Non Drug Allergy documented on EMR Reaction Allergy Type Onset Date Status aspirin Aspirin hives Drug Allergy Active Codeine Phosphate hives Drug Allergy Active Darvon Unknown Drug Allergy Active lisinopril Lisinopril cough Drug Allergy Activ e REASON FOR VISIT Painful Toe(s), Painful nail(s) aggrevated by shoes causing difficulty standing/walking Medications Medication SIG (Take, Route, Frequency, Duration) Notes Start Date End Date Status cloNIDine HCl 0.1 MG 1 tablet Orally [...] Once a day for 30 day(s) Active Fish Oil 1200 MG 1 capsule Orally [...] Additional Findings: Tobacco Non-User Ex-cigaret te smoker Tobacco use other than smoking: Question Answer Notes Are you an other tobacco user? No Problems Problem Type SNOMED Code ICD Code Onset Dates Problem Status W/U Status Risk Notes Problem Acquired hammer toe of right foot (340806755949 9105) Other hammer toe(s) (acquired), right foot (M20.41) Active confirmed Response to treatment,Im provement Problem Acquired hammer toe of left foot (289770714121 9103) Other hammer toe(s) (acquired), left foot (M20.42) Active confirmed Response to treatment,Im provement Vital Signs Height 5 ft 7 in in 08/31/2024 Weight 174 lbs 08/31/2024 BMI 27.25 kg/m2 08/31/2024 Blood pressure systolic 143 mm Hg 08/31/20 24 Blood pressure diastolic 79 mm Hg 024 Procedures Procedure Date Ordered Date Performed Result Body Sit e 01094-GMVRLSE NAIL, 6 OR MORE 08/31/2024 N/A Encounters Encounter Location Date Provider Diagnosis [facility] [place] [address] [place] [address] 08/31/2024 Anne Black Pain in right toe(s) M79.674 ; Other hammer toe(s) (acquired), right foot M20.41 ; Tinea unguium B35.1 ; Pain in left toe(s) M79.675 and Other hammer toe(s) (acquired), left foot M20.42 Assessments Encounter Date Diagnosis (ICD Code) Assessment Notes Treatment Notes Treatment Clinical Notes Section Notes 08/31/2024 Pain in right toe(s) (ICD-10 - M79.674) 08/31/2024 Other hammer toe(s) (acquired), right foot (ICD-10 - M20.41) Response to treatment,Impro vement 08/31/2024 Tinea unguium (ICD-10 - B35.1) 08/31/2024 Pain in left toe(s) (ICD-10 - M79.675) 08/31/2024 Other hammer toe(s) (acquired), left foot (ICD-10 - M20.42) Response to treatment,Impro vement Plan Of Treatment Pending Test Test Name Order Date 97522-[id number] NAIL, 6 OR MORE 08/31/2024 Next Appt Details Follow Up: prn, Reason: Provider Name:Anne Garcia , 12/10/2024 08:00:00 AM, [address] [place], [address], Procedure Notes * Category Sub-Category Detail Notes Debride Nail 6-10 Nail debridement Performance o f this nail treatment by a nonprofessional would put this patients foot and overall health at risk. Therefore, nail debridement was performed extensively to reduce/remove overall nail length, girth, thickness, subungual debris, and necrotic tissue, by manual and/or electrical means through the use of a nail nipper and/or dremel-type inner diameter grinder tool, to a more viable healthy nail plate or bed tissue 6-10. Silver nitrate used for any petechial bleeding as necessary. Definitive antifungal treatment options have been reviewed and discussed with the patient. The patient chooses, no pharmaceutical tx - 30512 Progress Notes * EMERALDAmbika CHAVEZonelDOB: 2 (83 yo M)Acc No.[id number]:08/31/2024 Progress Note Patient:?Ambika Sevillaonel Provider:?Anne LATANYA Garcia :1940???Age:83 Y???Sex:Male Dno e:08/31/2024 Address:[address] [place], [place] [id number] Pcp:Amarjit Romero MD Subjective: * Chief Complaints: * ???Painful Toe(s)Painful cm l(s) aggrevated by shoes causing difficulty standing/walking * HPI: ???Toe pain:?Nature:?tenderness.?Location:?Right foot , 2nd toe.?Duration:?several months.?Onset/Cause:?denies trauma.?Course:?, improved , at 70 percent.?Aggravated by:?any pressure, shoes.?Treatments:?rest/alter normal daily activity, change in shoes , Rx shoes .?Painful Nails:?Pt States Last PCP Visit:?Date:?07/02/2024 * ROS:?General/Constitutional:?Nausea?denies.?Vomiting?denies.?Hunger Thirst?denies.?Loss appetite?denies.?Chills?denies.?Fatigue?denies.?Fever?denies.?Night Sweats?denies.?Unexplained weight loss?denies.?Unexplained weight gain?denies.?HEENTM:?Dentures?admits.?Dizziness?denies.?Glasses/contacts?admits.?Retinopathy?de nies.?Blurred/double vision?denies.?TMJ?denies.?Discharge/drainage?denies.?Implants?denies.?Sore throat?denies.?Dental implants?denies.?Hard of hearing ?admits.?Difficulty chewing/swallowing/speaking?denies.?Nose bleeds?denies.?Sore mouth?denies.?Respiratory:?On Oxygen?denies.?Pneumonia/pleurisy?denies.?Bronchitis?denies.?Emphysema?denies.?C oughing?denies.?Cough blood?denies.?Shortness of breath?denies.?Wheezing?denies.?Cardiovascular:?Pacemaker?denies.?MVP?denies.?WPW?denies.?CHF?denies.?Heart attack?denies.?Septal defect?denies.?Rapid beat?denies.?Chest pain ?denies.?Atrial Fib.?denies.?Murmur/Palpitations?denies.?Gastrointestinal:?Hemorrhoids?denies.?Stomach/Abdominal pain?denies.?Dark blood stool?denies.?Irritable bowel ?denies.?Constipation?denies.?Diarrhea?denies.?Hematology:?Swelling?denies.?Clots?denies.?Varicose Veins?denies.?Bruising?denies.?Bleeding problem?denies.?Genitourinary:?Blood urine?denies.?Frequent/Painfu/urination/bladder control?denies.?Kidney stones?denies.?Infection (UTI)?denies.?Nephropathy?denies.?sex trans dis (STD)?denies.?Prostate?denies.?Musculoskeletal:?Hammertoes?, admits.?Bunions?denies.?Back Pain?denies.?Muscle Cramps/ Resting?denies.?Muscle cramps / walking?denies.?Generalized aches and pains?denies.?Weakness?denies.?Integ.:?[place]?denies.?Scars?denies.?Corns/calluses?denies.?Ingrown nails?denies.?Painful nails?admits.?Open Sores?denies.?Rashes?denies.?Neurologic:?Difficulty sleeping?denies.?Brain disorder?denies.?Numbness?denies.?Balance trouble?denies.?Confusion?denies.?Fainting/blackouts?denies.?Tingling?denies.?Tr emors?denies.? * Medical History:? * Surgical History:?knee repla cement 2appendectomy 1949colonoscopy 09/11/13reduction of bowel obstruction 1966Knee replacement 07/20/24 * Hospitalization/Major Diagno stic Procedure:?Denies Past Hospitalization * Family History:?Mother: dece ased, dementia, diagnosed with Unspecified essential hypertension.?Father: , diagnosed with Unspecified essential hypertension.?Paternal Grand Mother: diagnosed with Unspecified cerebral artery occlusion with cerebral infarction.?Maternal Grand Mother: diagnosed with Unspecified cerebral artery occlusion with cerebral infarction.?Siblings: diagnosed with Other malignant neoplasm of unspecified site.? * Social History:?Tobacco Use:?Tobacco Use/Smoking?Are you a:?former smoker ?Additional Findings: Tobacco Non-User?Ex-cigarette smoker ?Tobacco use other than smoking?Are you an other tobacco user??No ???Miscellaneous:?Caffeine: yes, frequency:, more than 4 cups per day. ?Children: yes. ?Exercise: yes, walking, bike riding. ?Marital status: . ?Occupation: Retired- In [employer]. * Medications:?TakingFish Oil 1200 MG Capsule 1 capsule Orally Once a dayLosartan Potassium 50 MG Tablet 1 tablet Orally Once a daycloNIDine HCl 0.1 MG Tablet 1 tablet Orally Once a daySpironolactone-HCTZ 25-25 MG Tablet 1 tablet Orally Once a dayCiclopirox 8 % Solution 1 application Externally Once a dayOrthopedic Extra Depth Shoes With Custom Heat Molded Multidensity Innersoles 1 Pair shoes with 3 Pair custom heat molded innersoles Wear DailyTaking Fish Oil 1200 MG Capsule 1 capsule Orally Once a dayTaking Losartan Potassium 50 MG Tablet 1 tablet Orally Once a dayTaking cloNIDine HCl 0.1 MG Tablet 1 tablet Orally Once a dayTaking Spironolactone-HCTZ 25-25 MG Tablet 1 tablet Orally Once a dayTaking Ciclopirox 8 % Solution 1 application Externally Once a dayTaking Orthopedic Extra Depth Shoes With Custom Heat Molded Multidensity Innersoles 1 Pair shoes with 3 Pair custom heat molded innersoles Wear DailyNot-Taking/RRHFud-E-Ztc Mens Medication List reviewed and reconciled with the patientNot-Taking/PRN One-A-Day Mens Medication List reviewed and reconciled with the patient * Allergies:?Aspirin: hivesCod eine Phosphate: hivesDarvonLisinopril: coughyes[Allergies Verified] Objective: * Vitals:?Ht: 5 ft 7 in, Wt: 1 74, BMI: 27.25, Shoe size: 10.5W, BP: 143/79 mm Hg, Wt-k.93 kg. * Examination: ???General Examination: ?GENERAL APPEARANCE:?good attention to hygiene, no acute distress, well developed, well nourished.?ORIENTED:?person, place, and time.?Nails: ?NAILS are:?elongated,overgrown,dystrophic,greater than 3mm thick,discolored and friable with crumbly malodorous subungual debris, with pain on palpation 1-5 B/L?.?Vascular: ?DP PULSES(B):?2/4, B/L.?PT PULSES(B):?2/4, B/L.?Neurological: ?SENSORY:?Neurological exam reveals intact sensorium, pain sensation normal, vibration sensation intact, pinprick sensation is normal in the lower extremities, Pt denies, anesthesia, burning, paresthesia, tingling, B/L.?Dermatologic: ?SKIN FINDINGS:?Skin exam reveals normal texture, elasticity, and tugor. There are no masses. The interspaces are clear Skin exam reveals Keratotic lesion(s) located at Plantar Midfoot B/L?.?Orthopedic: ?GAIT ABNORMALITY:?Pronated abducted angle and base of gate appropulsive.?FOOT MORPHOLOGY:?Rigid medial/plantar protrusion of Midfoot at area of Navicular tuberosity B/L Pes Planus structure Rigid b/l dorsal medial exostosis midfoot b/l POP b/l.?DIGITAL DEFORMITIES:?Digital contracture, PIPJ, 2-5 B/L, incompl-reducible with WB, or to push-up test, no over, nor underlapping, Reveals pain/swelling/redness/enlargement of DIPJ T6 at 70 % less.?FOOTWEAR:??good condition, exhibit proper fit and accommodation for pedal deformities..? Assessment: * Assessment: 1.?Other hammer toe(s) (acqu ired), right foot - M20.41 (Primary), Chronic problem, Stable (1=3,2=4), Response to treatment,Improvement?2.?Pain in right toe(s) - M79.674?3.?Tinea unguium - B35.1?4.?Pain in left toe(s) - M79.675?5.?Other hammer toe(s) (acquired), left foot - M20.42, Chronic problem, Stable (1=3,2=4), Response to treatment,Improvement? Plan: * Treatment: * Procedures:?Debride Nail 6-10:?Nail debridement?Performance of this nail treatment by a nonprofessional would put this patients foot and overall health at risk. Therefore, nail debridement was performed extensively to reduce/remove overall nail length, girth, thickness, subungual debris, and necrotic tissue, by manual and/or electrical means through the use of a nail nipper and/or dremel-type inner diameter grinder tool, to a more viable healthy nail plate or bed tissue 6-10. Silver nitrate used for any petechial bleeding as necessary. Definitive antifungal treatment options have been reviewed and discussed with the patient. The patient chooses, no pharmaceutical tx - 84153.? * Procedure Codes:?29561 DEBRI DE NAIL, 6 OR MORE, Modifiers: XS * Preventive Medicine:? ??Counseling:?Discussion:?-13: Office or other outpatient visit for the evaluation and management of an established patient, which required a medically appropriate history and/or examination and LOW level of DECISION MAKING for: 1 STABLE ACUTE UNCOMPLICATED PROBLEM, 2 OR MORE MINOR PROBLEMS, OR 1 STABLE CHRONIC PROBLEM, THAT POSE(S) A LOW RISK FOR MORBIDITY/MORTALITY. The visit on the day of the encounter encompassed interpreting the data and educating the patient as to the nature of their condition, treatment options available according to their individual PMH, meds, allergies, and overall health/living conditions, as well as any potential risks or complications that may occur from a failure to adhere to, and participate in, the recommended course of therapy. The discussion included a complete verbal, and/or written explanation of the examination results, any x-rays taken, the proposed diagnosis, and outline of the treatment plan. A schedule for future care needs was also explained. The patient verbalized an understanding of the instructions at this time and agreed to be an active participant in their treatment. If the patient should think of any questions or concerns after the visit, I have encouraged the patient to call the office.?Shoe Gear Counseling:?A thorough inspection of the patients Rxed shoegear and inserts was performed and findings communicated. We reviewed the many important medical advantages for adhering to regularly wearing these shoe and insert accomidative devices daily as well as reviewed the fact that a failure in accepting these recommedations may be deleterious, unable to prevent, and disadvantagely result in, many pedal complications such as skin irritation, skin ulceration, infection, and even loss of toe/foot/leg/or even their life. Time was also spent reviewing the proper footcare techniques including daily skin moisturization, daily foot inspection for any interruption in skin integrity, open lesions, or sign of infection such as redness/malodor/drainage/swelling as well as daily shoe inspection for the presence of internal foreign bodies and shoe as well as insert wear. Patient questions re: shoes, inserts, and self foot inspections were answered to their satisfaction as the patient verbally confirmed a full understanding of the above information.? * Follow Up:?prn * Images: * Sign off status: Completed true * Provider:?Anne Garcia DPM Date:?2023 Generated for Cedric montez/Tracy/Artemio on:?11/27/2024 02:22 PM EST History and Physical Notes * HPI (History of Present Illness) Category Sub-Category Detail Notes Category Not es Toe pain Nature: tenderness Location: Right foot , 2nd toe Duration: several months Onset/Cause: denies trauma Course: , improved , at 70 p ercent Aggravated by: any pressure, shoes Treatments: rest/alter normal da shawna activity, change in shoes , Rx shoes Painful Nails Pt States Last PCP Visit: Date:: 07/02/2024 Examination Category Sub-Category Detail Notes Category Not es Neurological SENSORY: Neurological exa m reveals intact sensorium, pain sensation normal, vibration sensation intact, pinprick sensation is normal in the lower extremities, Pt denies, anesthesia, burning, paresthesia, tingling, B/L Dermatologic SKIN FINDINGS: Skin exam reveal s normal texture, elasticity, and tugor. There are no masses. The interspaces are clear Skin exam reveals Keratotic lesion(s) located at Plantar Midfoot B/L Orthopedic GAIT ABNORMALITY: Pronated abduc paulina angle and base of gate appropulsive FOOT MORPHOLOGY: Rigid medial/plantar protrusion of Midfoot at area of Navicular tuberosity B/L Pes Planus structure Rigid b/l dorsal medial exostosis midfoot b/l POP b/l FOOTWEAR: good condition, exhi bit proper fit and accommodation for pedal deformities. DIGITAL DEFORMITIES: Digital contracture , PIPJ, 2-5 B/L, incompl-reducible with WB, or to push-up test, no over, nor underlapping, Reveals pain/swelling/redness/enlargement of DIPJ T6 at 70 % less General Examination GENERAL APPEARANCE: good att ention to hygiene, no acute distress, well developed, well nourished ORIENTED: person, place, and t dona Vascular DP PULSES (B): 2/4, B/L PT PULSES (B): 2/4, B/L Nails NAILS are: elongated,overgr own,dystrophic,greater than 3mm thick,discolored and friable with crumbly malodorous subungual debris, with pain on palpation 1-5 B/L
--- OUTSIDE RECORDS SUMMARY | 2024-11-27 14:23 | XMS_ITS ---
Author Organization [facility] Address [address] [place] [address] Care Team Providers Care Fitting Room Supervisor Name Role Phone Heather HERNANDEZ, Amarjit Mcneill Primary Care Provider Unav ailable Black, Anne Unavailable [phone] Allergies Allergen (clinical drug ingredient) Drug/Non Drug [...] above Performing Lab: Notes/Report: See Examination above REASON FOR VISIT Painful nail(s) aggrevated by shoes causing difficulty standing/walking, Foot/Leg pain Medications Medication SIG (Take, Route, Frequency, Duration) Notes Start Date End Date Status Losartan Potassium 50 MG 1 tablet Orally Once a day for 30 day(s) Active cloNIDine HCl 0.1 MG 1 tablet Orally Onc e a day for 30 day(s) Active Spironolactone-HCTZ 25-25 MG 1 tablet Orally Once a day for 30 day(s) Active Ciclopirox 8 % 1 application Manager Residential ally Once a day for 30 days 09/23/2023 Active One-A-Day Mens Not-T aking Fish Oil 1200 MG 1 capsule Orally Onc e a day for 30 day(s) Active Social [...] Problem Status W/U Status Risk Notes Problem Localized, primary osteoarthritis of the ankle and/or foot (190667051) 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 Problem Localized, primary osteoarthritis of the ankle and/or foot (244589247) Osteoarthritis of right ankle and foot (M19.071) Active confirmed Vital Signs Height 5 ft 7 in in 01/06/2024 Weight 163 lbs 01/06/2024 BMI 25.53 kg/m2 01/06/2024 Procedures Procedure Date Ordered Date Performed Result Body Sit e 10882-GDRNJZO NAIL, 6 OR MORE 01/06/2024 N/A Encounters Encounter Location Date Provider Diagnosis [facility] [place] [address] [place] [address] 01/06/2024 Anne Black Tinea unguium B35.1 ; Osteoarthritis of left ankle and foot M19.072 ; Pain in right toe(s) M79.674 ; Pain in left toe(s) M79.675 ; Midfoot collapse, 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 ; Midfoot collapse, right M21.6X1 ; Osteoarthritis of right ankle and foot M19.071 ; Pain in right foot M79.671 and Pain in left foot M79.672 Assessments Encounter Date Diagnosis (ICD Code) Assessment Notes Treatment Notes Treatment Clinical Notes Section Notes 01/06/2024 Tinea unguium (ICD-10 - B35.1) 01/06/2024 Osteoarthritis of left ankle and foot (ICD-10 - M19.072) 01/06/2024 Pain in right toe(s) (ICD-10 - M79.674) 01/06/2024 Pain in left toe(s) (ICD-10 - M79.675) 01/06/2024 Midfoot collapse, left (ICD-10 - M21.6X2) 01/06/2024 Midfoot collapse, right (ICD-10 - M21.6X1) 01/06/2024 Osteoarthritis of right ankle and foot (ICD-10 - M19.071) 01/06/2024 Pain in right foot (ICD-10 - M79.671) 01/06/2024 Pain in left foot (ICD-10 - M79.672) Plan Of Treatment Pending Test Test Name Order Date [id number] NAIL, 6 OR MORE 01/06/2024 Next Appt Details Follow Up: prn, Reason: Provider Name:Anne Garcia , 12/10/2024 08:00:00 AM, [address] [place] [address], [id number], Procedure Notes * Category Sub-Category Detail Notes Debride Nail 6-10 Nail debridement Nail debridem ent performed extensively to reduce/remove overall nail length and girth, subungual debris, and necrotic tissue, by manual and electrical means with use of a nail nipper and/or dremel, to more viable healthy nail plate or bed tissue 6-10. Silver nitrate used for any petechial bleeding as necessary. Patient chooses, to use a topical antifungal, pharmaceutical tx (87601) Progress Notes * Melonie SEVILLAlDOB: 2 (83 yo M)Acc No.[id number]:01/06/2024 Progress Note Patient:?Ambika Sevillaonel Provider:?Anne Garcia DPM :1940???Age:83 Y???Sex:Male Don e:01/06/2024 Address:[address] [place] [address] Pcp:Amarjit Romero MD Subjective: * Chief Complaints: * ???Painful nail(s) aggrevate d by shoes causing difficulty standing/walkingFoot/Leg pain * HPI: ???Painful Nails:?Pt States Last PCP Visit:?Date:?09/27/2023 ???Foot Pain:?Nature:?, aching , stiffness.?Location:?, Midfoot , B/L.?Duration:?several weeks.?Onset:?, gradual.?Course:?, worse.?Aggrevated:??increased pain in am or after rest.? * ROS:?General/Constitutional:?Nausea?denies.?Vomiting?denies.?Hunger Thirst?denies.?Loss appetite?denies.?Chills?denies.?Fatigue?denies.?Fever?denies.?Night Sweats?denies.?Unexplained weight loss?denies.?Unexplained weight gain?denies.?HEENTM:?Dentures?admits.?Dizziness?denies.?Glasses/contacts?admits.?Retinopathy?de nies.?Blurred/double vision?denies.?TMJ?denies.?Discharge/drainage?denies.?Implants?denies.?Sore throat?denies.?Dental implants?denies.?Hard of hearing ?admits.?Difficulty chewing/swallowing/speaking?denies.?Nose bleeds?denies.?Sore mouth?denies.?Respiratory:?On Oxygen?denies.?Pneumonia/pleurisy?denies.?Bronchitis?denies.?Emphysema?denies.?C oughing?denies.?Cough blood?denies.?Shortness of breath?denies.?Wheezing?denies.?Cardiovascular:?Pacemaker?denies.?MVP?denies.?WPW?denies.?CHF?denies.?Heart attack?denies.?Septal defect?denies.?Rapid beat?denies.?Chest pain ?denies.?Atrial Fib.?denies.?Murmur/Palpitations?denies.?Gastrointestinal:?Hemorrhoids?denies.?Stomach/Abdominal pain?denies.?Dark blood stool?denies.?Irritable bowel ?denies.?Constipation?denies.?Diarrhea?denies.?Hematology:?Swelling?denies.?Clots?denies.?Varicose Veins?denies.?Bruising?denies.?Bleeding problem?denies.?Genitourinary:?Blood urine?denies.?Frequent/Painfu/urination/bladder control?denies.?Kidney stones?denies.?Infection (UTI)?denies.?Nephropathy?denies.?sex trans dis (STD)?denies.?Prostate?denies.?Musculoskeletal:?Hammertoes?denies.?Bunions?denies.?Back Pain?denies.?Muscle Cramps/ Resting?denies.?Muscle cramps / walking?denies.?Generalized aches and pains?denies.?Weakness?denies.?Integ.:?[place]?denies.?Scars?denies.?Corns/calluses?denies.?Ingrown nails?denies.?Painful nails?admits.?Open Sores?denies.?Rashes?denies.?Neurologic:?Difficulty sleeping?denies.?Brain disorder?denies.?Numbness?denies.?Balance trouble?denies.?Confusion?denies.?Fainting/blackouts?denies.?Tingling?denies.?Tr emors?denies.? * Medical History:? * Surgical History:?knee repla cement 07/16/2022ppendectomy 1949colonoscopy 09/11/13reduction of bowel obstruction 1966 * Hospitalization/Major Diagno stic Procedure:?Denies Past Hospitalization [...] than smoking?Are you an other tobacco user??No ???Drugs/Alcohol:?Drugs?Have you used drugs other than those for medical reasons in the past 12 months??No ?Alcohol Screen?Did you have a drink containing alcohol in the past year??Yes ?How often did you have a drink containing alcohol in the past year??Monthly or less (1 point) ?Points?1 ?Interpretation?Negative ???Miscellaneous:?Caffeine: yes, frequency:, more than 4 cups [...] Solution 1 application Externally Once a dayTaking Fish Oil 1200 MG Capsule 1 capsule Orally Once a dayTaking Losartan Potassium 50 MG Tablet 1 tablet Orally Once a dayTaking cloNIDine HCl 0.1 MG Tablet 1 tablet Orally Once a dayTaking Spironolactone-HCTZ 25-25 MG Tablet 1 tablet Orally Once a dayTaking Ciclopirox 8 % Solution 1 application Externally Once a dayNot-Taking/KSHTfr-O-Wur Mens Medication List reviewed and reconciled with the patientNot-Taking/PRN One-A-Day Mens Medication List reviewed and reconciled with the patient * Allergies:?Aspirin: hivesCod eine Phosphate: hivesDarvonLisinopril: coughyes[Allergies Verified] Objective: * Vitals:?Ht: 5 ft 7 in, Wt:16 3, BMI:25.53, Shoe size:10.5W. * Examination: ???General Examination: ?GENERAL APPEARANCE:?good attention to hygiene, no acute distress, well developed, well nourished.?Vascular: ?DP PULSES:?2/, B/L.?PT PULSES:?/4, B/L.?Neurological: ?SENSORY:?Neurological exam reveals intact sensorium, pain sensation normal, vibration sensation intact, pinprick sensation is normal in the lower extremities, Pt denies, anesthesia, burning, paresthesia, tingling, B/L.?Orthopedic: ?MUSCLE STRENGTH:?5/5 all groups in a symmetrical fashion, B/L.?GAIT ABNORMALITY:?Pronated abducted angle and base of gate appropulsive.?FOOT MORPHOLOGY:?Rigid medial/plantar protrusion of Midfoot at area of Navicular tuberosity B/L Pes Planus structure Rigid b/l dorsal medial exostosis midfoot b/l POP b/l.?BUNION:?Plantarflexed 1st ray , ( + ) Hallux extensus, equinus extensor hallucius longus.?DIGITAL DEFORMITIES:?Digital contracture, PIPJ, 2-5 B/L, incompl-reducible with WB, or to push-up test, no over, nor underlapping.?FOOTWEAR:? good condition.?Nails: ?NAILS are:?elongated,overgrown,dystrophic,greater than 3mm thick,discolored and friable with crumbly malodorous subungual debris, with pain on palpation 1-5 B/L?.?Dermatologic: ?SKIN FINDINGS:?Skin exam reveals normal texture, elasticity, and tugor. There are no masses. The interspaces are clear Skin exam reveals Keratotic lesion(s) located at Plantar Midfoot B/L with localized erythema present, no break in the integument.?X-Rays - IMAGING REPORT: ?Clinical Indication(s):?Evaluate Biomechanical Deformity.?Views:?3 views of Foot , B/L , AP , LAT , MO.?Findings:?mild generalized decrease in bone density , navicular/cuneiform plantar subluxation with anterior cyma line , hypertrophied navicular tuberosity , dorsal degenerative changes of the tarsal joints , eburnation dorsal 1st MT/Cun. jt.?Digits:?show asymmetrical joint space narrowing at the PIPJ consistent with clinical finding of hammertoe deformity, show enlarged/hypertrophied phalangeal head(s) consistent for clinical finding of hammertoe deformity.?HAV:?increased First Intermetatarsal angle and Hallux Abductus angle consistent with Bunion deformity noted.?Fracture:?Negative fractures identified.? Assessment: * Assessment: 1.?Tinea unguium - B35.1?2.? 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 Plan: * Treatment: 2.?Pain in right foot?Imaging: X ray : Foot, right 3V?See Examination above 3.?Pain in left foot?Imaging: X ray : Foot, left 3V?See Examination above * Procedures:?Debride Nail 6-10:?Nail debridement?Nail debridement performed extensively to reduce/remove overall nail length and girth, subungual debris, and necrotic tissue, by manual and electrical means with use of a nail nipper and/or dremel, to more viable healthy nail plate or bed tissue 6-10. Silver nitrate used for any petechial bleeding as necessary. Patient chooses, to use a topical antifungal, pharmaceutical tx (45151).? * Procedure Codes:?62172 DEBRI DE NAIL, 6 OR MORE, Modifiers: XS 23007 X-RAY EXAM OF RIGHT FOOT 3V, Modifiers: 26 , [id number] X-RAY EXAM OF LEFT FOOT 3V, Modifiers: 26 , LT * Preventive Medicine:? ??Counseling:?Discussion:?-14: Office or other outpatient visit for the evaluation and management of an established patient, which required a medically appropriate history and/or examination and MODERATE level of DECISION MAKING for: 1 OR MORE CHRONIC PROBLEM(S) THATS WORSENING, 2 STABLE CHRONIC PROBLEMS, A NEWLY DIAGNOSED PROBLEM WITH UNCERTAIN PROGNOSIS, AN ACUTE COMPLICATED INJURY WITH MULTIPLE TREATMENT OPTIONS, OR AN ACUTE PROBLEM WITH ACCOMPANYING SYSTEMIC SYMPTOMS, THAT POSE(S) A MODERATE RISK OF MORBIDITY. THIS CONDITION MAY ALSO INCLUDE RX DRUG MANAGEMENT, OR A DECISON FOR MINOR SURGERY. The visit on the day of the [...] have encouraged the patient to call the office.?Arthritis:?The Pt. was counseled on the x-rays,treatment options, and the importance of following all homecare instructions, The patient was counseled on the various etiologies for their Arthritis including genetic, history of injury or trauma, abnormal foot biomechanics leading to excessive joint wear, and use/overuse. We discussed the various treatment options from no treatment, to topical analgesics such as Biofreeze gel, Aspercream, Voltaren gel, Lidoderm patches, CBD oils, THC creams, and Custom-compounded topical cream preparations to natural oral products such as Glucosamine Sulfate/Chondroitin/MSM/Collegen to analgesic Tylenol, to anti-inflammatory medications such as Ibuprofen/Naproxen, and the use of oral steroids if needed. Cardiac, Kidney, and GI issues were discussed RE: potential complications of oral anti-inflammatories. We discussed several other treatment options consisting of accom shoes, supportive innersoles, AFO bracing/support, cortisone injection therapy, and surgical resection of the arthritic joint(s) or fusion reconstruction if necessary. We discussed the advantages and disadvantages of conservative (vs) surgical treamtents including pain relief, improved function/activities of daily life, return to exercise to failure, expense, systemic complications, infection, [id number], prolongued postop course. Patient questions re: the various treatment options available, their successes and potential failures, and intermodal owner operator truck driver effects were discussed and the answers were verbally confirmed understood, Recommended Topical analgesics including Biofreeze/Aspercream/Voltaren gel.?BioMech.:?I discussed the Pts foot biomechanics with them and how it relates to their problem.?Podiatric Surgery Counseling:?Pt defers on any surgical intervention.? * Follow Up:?prn * Images: * Sign off status: Completed true * Provider:Moon Garcia DPM Date:?2023 Generated for Cedric montez/Tracy/Artemio on:?11/27/2024 02:23 PM EST History and Physical Notes * HPI (History of Present Illness) Category Sub-Category Detail Notes Category Not es Painful Nails Pt States Last PCP Visit: Date:: 09/27/2023 Foot Pain Nature: , aching , stiffness Location: , Midfoot , B/L Duration: several weeks Onset: , gradual Course: , worse Aggravated: increased pain in am or after rest Examination Category Sub-Category Detail Notes Category Not [...] Keratotic lesion(s) located at Plantar Midfoot B/L with localized erythema present, no break in the integument Orthopedic GAIT ABNORMALITY: Pronated abduc paulina angle and base of gate appropulsive FOOT MORPHOLOGY: Rigid medial/plantar protrusion of Midfoot at area of Navicular tuberosity B/L Pes Planus structure Rigid b/l dorsal medial exostosis midfoot b/l POP b/l BUNION: Plantarflexed 1st ra y , ( + ) Hallux extensus, equinus extensor hallucius longus FOOTWEAR: good condition DIGITAL DEFORMITIES: Digital contracture , PIPJ, 2-5 B/L, incompl-reducible with WB, or to push-up test, no over, nor underlapping MUSCLE STRENGTH: 5/5 all groups in a symmetrical fashion, B/L General Examination GENERAL APPEARANCE: good att ention to hygiene, no acute distress, well developed, well nourished Vascular DP PULSES (B): 2/4, B/L PT PULSES (B): 2/4, B/L Nails NAILS are: elongated,overgr own,dystrophic,greater than 3mm thick,discolored and friable with crumbly malodorous subungual debris, with pain on palpation 1-5 B/L X-Rays - IMAGING REPORT Findings: mild generalized decrease in bone density , navicular/cuneiform plantar subluxation with anterior cyma line , hypertrophied navicular tuberosity , dorsal degenerative changes of the tarsal joints , eburnation dorsal 1st MT/Cun. jt Fracture: Negative fractures i dentified Digits: show asymmetrical niurka int space narrowing at the PIPJ consistent with clinical finding of hammertoe deformity, show enlarged/hypertrophied phalangeal head(s) consistent for clinical finding of hammertoe deformity HAV: increased First Inte rmetatarsal angle and Hallux Abductus angle consistent with Bunion deformity noted Views: 3 views of Foot , B/ L , AP , LAT , MO Clinical Indication(s): Evaluate Biomech anical Deformity
--- OUTSIDE RECORDS SUMMARY | 2024-11-27 14:23 | XMS_ITS | Patient Health Record ---
Author Organization [facility] Address [address] [place] [address] Care Team Providers Care Sas Programmer Remote Name Role Phone Amarjit Romero Primary Care Provider Unavailabl e Allergies Allergen (clinical drug ingredient) Drug/Non Drug Allergy documented on EMR Reaction Allergy Type Onset Date Status aspirin Aspirin Unknown Drug Allergy Active Darvon Unknown Drug Allergy Active lisinopril Lisinopril Unknown Drug Allergy Activ e Reason For Referral No Information Medications Medication SIG (Take, Route, Frequency, Duration) Notes Start Date End Date Status Sildenafil Citrate 50 MG 1 tablet as nee ded Orally prn Active Ciclopirox 8 % 1 application Nuclear Weapons Custodian ally Once a day Active Losartan Potassium 50 MG 1 tablet Orally Once a day Active Norvasc 10 MG 1 tablet Orally Once a day Active hydroCHLOROthiazide 25 MG 1 tablet in th e morning Orally Once a day Active Problems Problem Type SNOMED Code ICD Code Onset Dates Problem Status W/U Status Risk Notes Problem 37278925 Osteoarthritis o f right ankle and foot (M19.071) Active confirmed Plan Of Treatment Pending Test Test Name Order Date X ray : Foot, left 3v 01/11/2021 X ray : Foot, right 3v 01/11/2021 Insurance Providers Payer Name Payer Address Payer Phone Subscriber Number Group Number Insured Name Patient Relationship to Insured Coverage Start Date Coverage End Date [facility] [place] [address] Denisha J[place] [id number] Gregory Sevilla Self - patient is the insured Medical (General) History Medical History History ICD Code 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
--- OUTSIDE RECORDS SUMMARY | 2024-11-27 14:23 | XMS_ITS ---
Author Organization [facility] Address [address] [place] [address] Care Team Providers Care Traffic Sergeant Name Role Phone Heather HERNANDEZ, Amarjit Mcneill Primary Care Provider Unav ailable Black, Anne Unavailable [phone] Allergies Allergen (clinical drug ingredient) Drug/Non Drug [...] day(s) Active Ciclopirox 8 % 1 application Externally Once a day for 30 days 09/23/2023 Active One-A-Day Mens Not-T aking Orthopedic Extra Depth Shoes With Custom Heat Molded Multidensity Innersoles 1 Pair shoes with 3 Pair custom heat molded innersoles Wear Daily for 365 days 05/18/2024 Active Social History Tobacco Use: Social History [...] primary osteoarthritis of the ankle and/or foot (484204002) Arthritis of joint of lesser toe, right (M19.071) Active confirmed Vital Signs Height 5 ft 7 in in 05/18/2024 Weight 175 lbs 05/18/2024 BMI 27.41 kg/m2 05/18/2024 Blood pressure systolic 141 mm Hg 05/18/20 24 Blood pressure diastolic 76 mm Hg 024 Procedures Procedure Date Ordered Date Performed Result Body Sit e 76308-NWHTLSS NAIL, 6 OR MORE 05/18/2024 N/A Encounters Encounter Location Date Provider Diagnosis [facility] [address] [place] [address] 05/18/2024 Anne Black Pain in right toe(s) M79.674 ; Other hammer toe(s) (acquired), right foot M20.41 ; Arthritis of joint of lesser toe, right M19.071 ; Subluxation of metatarsophalangeal joint of toe, initial encounter S93.149A ; Tinea unguium B35.1 ; Pain in left toe(s) M79.675 ; Midfoot collapse, 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 and Midfoot collapse, right M21.6X1 Assessments Encounter Date Diagnosis (ICD Code) Assessment Notes Treatment Notes Treatment Clinical Notes Section Notes 05/18/2024 Pain in right toe(s) (ICD-10 - M79.674) 05/18/2024 Other hammer toe(s) (acquired), right foot (ICD-10 - M20.41) 05/18/2024 Arthritis of joint o f lesser toe, right (ICD-10 - M19.071) 05/18/2024 Subluxation of metatarsophalangeal joint of toe, initial encounter (ICD-10 - S93.149A) 05/18/2024 Tinea unguium (ICD-1 0 - B35.1) 05/18/2024 Pain in left toe(s) (ICD-10 - M79.675) 05/18/2024 Midfoot collapse, le ft (ICD-10 - M21.6X2) 05/18/2024 Midfoot collapse, ri ght (ICD-10 - M21.6X1) Plan Of Treatment Medication Medication Name Sig Start Date Stop Date Notes Orthopedic Extra Depth Shoes With Custom Heat Molded Multidensity Innersoles 1 Pair shoes with 3 Pair custom heat molded innersoles Wear Daily for 365 days 05/18/2024 Pending Test Test Name Order Date [id number] NAIL, 6 OR MORE 05/18/2024 Next Appt Details Follow Up: prn, Reason: Provider Name:Anne Alejo Jose , 12/10/2024 08:00:00 AM, [address] [place] [address], [phone], Procedure Notes * Category Sub-Category Detail Notes Debride Nail 6-10 Nail debridement Nail debridem ent performed extensively to reduce/remove overall nail length, girth, thickness, subungual debris, and necrotic tissue, by manual and electrical means through the use of a nail nipper and/or dremel, to more viable healthy nail plate or bed tissue 1-5. Silver nitrate used for any petechial bleeding as necessary. Patient chooses, no pharmaceutical tx (03982) Progress Notes * Melonie SEVILLAlDOB: 2 (83 yo M)Acc No.[id number]:05/18/2024 Progress Note Patient:?Di Gregory Provider:?Anne Garcia DPM :1940???Age:83 Y???Sex:Male Don e:05/18/2024 Address:[address] [place] [address] Pcp:Amarjit Romero MD Subjective: * Chief Complaints: * ???Painful Toe(s)Painful cm l(s) aggrevated by shoes causing difficulty standing/walking * HPI: ???Toe pain:?Nature:?tenderness.?Location:?Right foot , 2nd toe.?Duration:?several months.?Onset/Cause:?denies trauma.?Course:?worse.?Aggrevated by:?any pressure, shoes.?Treatments:?rest/alter normal daily activity, change in shoes.?Painful Nails:?Pt States Last PCP Visit:?Date:?04/22/2024 * Medical History:? * Surgical History:?knee repla [...] % Solution 1 application Externally Once a dayNot-Taking/THCGar-A-Yjm Mens Medication List reviewed and reconciled with the patientNot-Taking/PRN One-A-Day Mens Medication List reviewed and reconciled with the patient * Allergies:?Aspirin: hivesCod eine Phosphate: hivesDarvonLisinopril: coughyes[Allergies Verified] Objective: * Vitals:?Ht: 5 ft 7 in, Wt: 1 75, BMI: 27.41, Shoe size: 10.5W, BP: 141/76 mm Hg, Wt-k.38 kg. * Examination: ???General Examination: ?GENERAL APPEARANCE:?good attention to hygiene, no acute distress, well developed, well nourished.?ORIENTED:?person, place, and time.?Nails: ?NAILS are:?elongated,overgrown,dystrophic,greater than 3mm thick,discolored and friable with crumbly malodorous subungual debris, with pain on palpation 1-5 B/L?.?Vascular: ?DP PULSES:?2/4, B/L.?PT PULSES:?2/4, B/L.?Neurological: ?SENSORY:?Neurological exam reveals intact sensorium, pain sensation normal, vibration sensation intact, pinprick sensation is normal in the lower extremities, Pt denies, anesthesia, burning, paresthesia, tingling, B/L.?Dermatologic: ?SKIN FINDINGS:?Skin exam reveals normal texture, elasticity, and tugor. There are no masses. The interspaces are clear Skin exam reveals Keratotic lesion(s) located at Plantar Midfoot B/L with localized erythema present, no break in the integument.?Orthopedic: ?MUSCLE STRENGTH:?5/5 all groups in a symmetrical fashion, B/L.?GAIT ABNORMALITY:?Pronated abducted angle and base of gate appropulsive.?FOOT MORPHOLOGY:?Rigid medial/plantar protrusion of Midfoot at area of Navicular tuberosity B/L Pes Planus structure Rigid b/l dorsal medial exostosis midfoot b/l POP b/l.?BUNION:?Plantarflexed 1st ray , ( + ) Hallux extensus, equinus.?DIGITAL DEFORMITIES:?Digital contracture, PIPJ, 2-5 B/L, incompl-reducible with WB, or to push-up test, no over, nor underlapping, Reveals pain/swelling/redness/enlargement of DIPJ T6.?FOOTWEAR:? shoe gear properties exacerbate patients foot/toe deformity , good condition.?X-Rays - IMAGING REPORT: ?Clinical Indication(s):?reviewed previous x-rays.?Views:?3 views of Foot , B/L , AP [...] deformity noted.?Fracture:?Negative fractures identified.? 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 Plan: * Treatment: 2.?Tinea unguium?Procedure: [id number]-[id number] NAIL, 6 OR MORE * Procedures:?Debride Nail 6-10:?Nail debridement?Nail debridement performed extensively to reduce/remove overall nail length, girth, thickness, subungual debris, and necrotic tissue, by manual and electrical means through the use of a nail nipper and/or dremel, to more viable healthy nail plate or bed tissue 1-5. Silver nitrate used for any petechial bleeding as necessary. Patient chooses, no pharmaceutical tx (09491).? * Procedure Codes:?19332 DEBRI DE NAIL, 6 OR MORE, Modifiers: XS * Preventive Medicine:? ??Counseling:?Discussion:?-14: Office or other [...] have encouraged the patient to call the office.?Digital Surgery:?FLEXOR : Minimal Incision digital procedure consisting of Percutaneous Flexor Release was discussed with the patient, including the risks of the procedure vs and not having the procedure, the potential procedure complications, the anesthesia, and the usual post-op course. No guarentees were given. We discussed with the patient the complications such as delayed/non healing, excessive scarring, excessive swelling, failure of procedure, floppy toe, infection, numbness, chronic pain, recurrence of the condition, shortened toe, joint stiffness, and possible loss of limb/life. Alternatives to the procedure were also discussed, including conservative care,, The patient will consider surgical treatment.?Digital Treatment:?HT- I explained to the patient the possible etiologies of Hammertoes, including genetics/foot type/shoegear/activity level/exercise routine and the risks/benefits of all the different treatment options for their pain including: No treatment at all, Rest, Ice, New/supportive/wider/deeper Shoegear, Digital Padding/Strapping/Taping/Bracing/Gel protective sleeves, Foot/Ankle AFO Bracing, Stretching exercises, Deep Tissue Massage, Arch support/shoe inserts with splay metatarsal padding, and Custom orthoses. I insisted that any digital devices be removed daily and not worn overnight for safety. The patient is to carefully examine the toes daily for any skin irritation while using any splinting or padding device. The advantages and disadvantages of each option were discussed and the patients questions re: shoegear, padding, custom vs prefabricated inserts, activity level, and consistency in home treatment regimens for optimal success were answered to their verbally confirmed satisfaction, Rx: Extra Depth Orthopedic Shoes with 3 pair of custom heat-molded inserts.? * Follow Up:?prn * Images: * Sign off status: Completed true * Provider:?Anne Garcia DPM Date:?2023 Generated for Cedric montez/Tracy/eTjaninesmitting on:?11/27/2024 02:22 PM EST History and Physical Notes * HPI (History of Present Illness) Category Sub-Category Detail Notes Category Not es Toe pain Nature: tenderness Location: Right foot , 2nd toe Duration: several months Onset/Cause: denies trauma Course: worse Aggravated by: any pressure, shoes Treatments: rest/alter normal da shawna activity, change in shoes Painful Nails Pt States Last PCP Visit: Date:: 04/22/2024 Examination Category Sub-Category Detail Notes Category Not [...] , ( + ) Hallux extensus, equinus FOOTWEAR: shoe gear properties exacerbate patients foot/toe deformity , good condition DIGITAL DEFORMITIES: Digital contracture , PIPJ, 2-5 B/L, incompl-reducible with WB, or to push-up test, no over, nor underlapping, Reveals pain/swelling/redness/enlargement of DIPJ T6 MUSCLE STRENGTH: 5/5 all groups in a [...] AP , LAT , MO Clinical Indication(s): reviewed previou s x-rays
== END 2024-11-26 12:20 | disposition home or self-care (01) ==
LOC: HO.HOSX 12:19
PROVIDERS: Visit Provider Orthopaedic Surgery
DX: M25.562 Pain in left knee (principal); Z96.652 Presence of left artificial knee joint
CPT/HCPCS: 73562; 99212

== ENCOUNTER 2025-04-20 08:22 | Outpatient (AMB) | payer MEDICARE, SELFPAY ==
--- NOTE | 2025-04-20 08:26 | MHC.OFFVIS ---
Vital Signs 04/20/25 08:30 Height 5 ft 7 in Weight 177 lb BMI 27.7 Intake Visit Reasons: Status post bilateral knee replacements Intake Note: Gregory is an 84 year old male who presents with complaints of intermittent discomfort in both of his knees after undergoing right total knee replacement surgery on 07/16/2022 as well as left total knee replacement surgery on 07/20/2024. He continues with his home exercise program. He does not take any medicines for his discomfort. He denies any fevers or chills. Allergies aspirin Allergy (Severe, Verified 04/20/25 08:30) Hives codeine Allergy (Intermediate, Verified 04/20/25 08:30) Hives propoxyphene [From Darvon] Allergy (Intermediate, Verified 04/20/25 08:30) Hives lisinopril Adverse Reaction (Intermediate, Verified 04/20/25 08:30) Cough Medication List - Last Reconciled 04/20/25 by Portillo Castro MD acetaminophen 650 mg (2 x 325 mg) PO Q6H PRN 30 days amoxicillin 2,000 mg PO ONCE PRN cholecalciferol (vitamin D3) 50 mcg PO DAILY clonidine 1 patch topical SA docusate sodium 100 mg PO BID 7 days enoxaparin 40 mg (0.4 mL) subcut Q24H 28 days ipratropium bromide 2 sprays intranasal TID losartan 50 mg PO DAILY spironolacton-hydrochlorothiaz 25-25 mg 1 tab PO DAILY tamsulosin 0.4 mg PO BEDTIME walker Folding front wheeled walker [facility] Medical History Former smoker CKD (chronic kidney disease) Bowel obstruction Osteoarthritis Pain in limb Pure hypercholesterolemia Hearing loss Unspecified deformity of ankle and foot, acquired Hyperpiesia Arthritis Helicobacter pylori (H. pylori) infection HTN (hypertension) Prostate nodule Actinic keratosis Pre-diabetes Surgical History H/O colonoscopy Hx of appendectomy History of esophagogastroduodenoscopy (EGD) History of total right knee replacement Hx of right knee surgery (~2000) Social History Are you a primary personal care assistant to a significant other at home: No Do you presently have visiting nurse or other home services: No Patient Tobacco Use Status: Former Tobacco user Current occupational status: retired Current occupation: Right hand dominate Physical Exam Vital Signs: BMI result Body Mass Index 27.7 Const Other: Well-nourished well-developed very friendly male awake alert and oriented x3 in no acute distress Extrem Other: Bilateral lower extremity examination shows good capillary refill, no skin lesions noted, normal sensation light touch Bilateral knee examination shows that the surgical incisions are well healed, no erythema, full active extension and flexion to 120 degrees, his patellae track well Assessment & Plan Assessment & Plan (1) Left knee pain: Code(s): M25.562 - Pain in left knee Category: Medical (2) Right knee pain: Code(s): M25.561 - Pain in right knee Category: Medical (3) Status post bilateral knee replacements: Code(s): Z96.653 - Presence of artificial knee joint, bilateral Plan Mr. Sevilla continues to do very well after undergoing bilateral total knee replacement surgeries. He will continue with his home exercise program. He does know to take antibiotics before any dental work. He will contact me prior to his annual follow-up appointment should any questions or concerns arise. Feel free to call me at any time should questions regarding his orthopedic management arise. I spent 20 minutes in reviewing the patient's records and imaging studies, seeing the patient and documenting in the medical record. Coding Level of Care Code Est Pt Level 3 (48721) Complex EM visit Add On G2211 Diagnoses Left knee pain M25.562 Right knee pain M25.561 Status post bilateral knee replacements Z96.653
[2025-04-20 08:30] VITALS: BMI 27.7
== END 2025-04-20 08:47 | disposition home or self-care (01) ==
LOC: HO.HOS 08:23
PROVIDERS: PCP Internal Medicine; Visit Provider Orthopaedic Surgery
DX: M25.562 Pain in left knee (principal); M25.561 Pain in right knee; Z96.653 Presence of artificial knee joint, bilateral
CPT/HCPCS: 99213; G2211

== ENCOUNTER → 2025-04-20 08:22 | Outpatient (BNVA) | payer MEDICARE, SELFPAY | PROVIDERS: PCP Internal Medicine; Visit Provider Orthopaedic Surgery | DX: M25.562 Pain in left knee (principal); M25.561 Pain in right knee; Z96.653 Presence of artificial knee joint, bilateral | CPT/HCPCS: 99212 ==